=== PATIENT | male | born 1955 | race Caucasian/White ===

== ENCOUNTER 2021-06-30 02:01 | Day surgery (SDC) | payer OTHER, SELFPAY ==
[2021-06-15 14:51] VITALS: BMI 33.7
[2021-06-30 08:15] VITALS: BP 127/74; PULSE 61; RESP 16; TEMP 36.3; O2SAT 99
[2021-06-30] MEDS: LACTATED RINGERS 1,000 ML 150 ML IV CONT (08:30)
--- NOTE | 2021-06-30 09:03 | PM.HPGS ---
History of Present Illness History of Present Illness Consent: Risks, benefits, and alternatives have been discussed and questions answered. Patient agrees to proceed with procedure. Chief complaint: neoplasm screening Z12.11 Narrative: Enrique Gaitan is a 65 year old male here for screening colonoscopy, last one 12 years ago. Review of Systems Constitutional: Constitutional: Denies headache(s) and Denies weakness Eyes: Eyes: Denies blurry vision ENT: Reports Normal hearing present, Denies headache(s) and Denies neck pain Cardiovascular: Cardiovascular: Denies chest pain and Denies dyspnea Respiratory: Respiratory: Denies dyspnea Gastrointestinal: Gastrointestinal: Reports no additional gastrointestinal complaints Genitourinary: Genitourinary: Denies dysuria Musculoskeletal: Musculoskeletal: Denies neck pain Integumentary/Breasts: Skin/Breast: Denies dry skin Neurologic: Reports Normal hearing present, Denies headache(s) and Denies weakness Psychiatric: Psychiatric: Denies anxiety Endocrine: Endocrine: Denies change in body appearance Hematologic/Lymphatic: Hematologic/Lymphatic: Denies easy bleeding Allergic/Immunologic: Allergic/Immunologic: Denies urticaria PMFSH Past Medical History Medical History (Updated 06/30/21 @ 09:03 by Berry Ngo MD) Colon cancer screening Hyperlipidemia Hypertension NABOR (obstructive sleep apnea) Social History Social History Smoking status: Former smoker Tobacco type: cigarettes Alcohol intake: current Alcohol use details: socially Substance use: never Substance use type: does not use Living arrangements: with family Spiritual care concerns: No Meds Home Medications and Allergies Home Medications Medication Instructions Recorded Confirmed Type fluoxetine 20 mg PO DAILY 06/15/21 06/30/21 History gabapentin 300 mg PO DAILY 06/15/21 06/30/21 History hydrochlorothiazide 50 mg PO DAILY 06/15/21 06/30/21 History losartan 100 mg PO DAILY 06/15/21 06/30/21 History pravastatin 40 mg PO DAILY 06/15/21 06/30/21 History Allergies Allergy/AdvReac Type Severity Reaction Status Date / Time No Known Allergies Allergy Verified 06/30/21 08:14 Vital Signs Vital Signs - 24 hr 06/30/21 08:15 Temperature 97.3 F L Pulse Rate 61 Respiratory Rate 16 Blood Pressure 127/74 Pulse Oximetry 99 Exam Const: General: comfortable and no acute distress HENMT: General nose exam: Normal nares present Eyes: General: appearance normal, both eyes and all related structures Neck: Neck: no JVD Resp: Auscultation: clear to auscultation bilaterally Cardio: Rate: regular rate Rhythm: regular rhythm GI: Inspection: non-distended GI Palp: Yes Soft to palpation Skin: General skin exam: normal color Neuro: General: gait normal Speech: normal speech Extrem: General: normal to inspection Psych: Mental Status: mental status grossly normal Assessment and Plan Assessment and plan (1) Colon cancer screening: Code(s): Z12.11 - Encounter for screening for malignant neoplasm of colon Status: Acute Assessment and Plan: colonoscopy
--- NOTE | 2021-06-30 09:05 | P.PNAN_ITS ---
Anes - Initial Pre Proc Eval Procedure: Operation Date: 06/30/21 09:00 Proposed Procedures p Screening Colonoscopy - Berry Ngo MD Date/Time: 06/30/21 09:05 Surgeon: Berry Ngo MD Pre Op Diagnosis: neoplasm screening Z12.11 Patient Data Age: 65 Gender: M Height: 1.91 m Weight: 122.6 kg Last Vital Signs Temp 97.3 F L 06/30/21 08:15 Pulse 61 06/30/21 08:15 Resp 16 06/30/21 08:15 BP 127/74 06/30/21 08:15 Pulse Ox 99 06/30/21 08:15 Allergies Allergy/AdvReac Type Severity Reaction Status Date / Time No Known Allergies Allergy Verified 06/30/21 08:14 Home Medications Medication Instructions Recorded Confirmed Type fluoxetine 20 mg PO DAILY 06/15/21 06/30/21 History gabapentin 300 mg PO DAILY 06/15/21 06/30/21 History hydrochlorothiazide 50 mg PO DAILY 06/15/21 06/30/21 History losartan 100 mg PO DAILY 06/15/21 06/30/21 History pravastatin 40 mg PO DAILY 06/15/21 06/30/21 History Patient hx anesthesia problems: none Family hx anesthesia problems: none [facility] Past Medical History Medical History (Updated 06/30/21 @ 09:03 by Berry Ngo MD) Colon cancer screening Hyperlipidemia Hypertension NABOR (obstructive sleep apnea) Social History Social History Smoking status: Former smoker Tobacco type: cigarettes Alcohol intake: current Alcohol use details: socially Substance use: never Substance use type: does not use Living arrangements: with family Spiritual care concerns: No Anes - Eval Final PreProcedure Day of Procedure 06/30/21 09:05 Patient weight: obese Heart: regular rate and rhythm Lungs: clear to auscultation Airway: Mallampati scale class II Neurological: alert and oriented Last oral intake: >/= 8 hours ASA classification: III Emergent: no Anesthetic plan: proceed Anesthesia type and monitoring: general GIVS and standard monitoring Informed Consent: The patient's anesthetic plan and its attendant risks and benefits were discussed with the patient/family/POA. Questions were solicited and answers provided to the satisfaction of the patient/family/POA.
[2021-06-30 09:35] VITALS: BP 115/68; PULSE 52; RESP 22; O2SAT 96
[2021-06-30 09:45] VITALS: BP 124/84; PULSE 58; RESP 24; O2SAT 96
[2021-06-30 09:55] VITALS: BP 131/88; PULSE 49; RESP 22; O2SAT 100
== END 2021-06-30 10:07 | disposition home or self-care (01) ==
PROVIDERS: PCP Internal Medicine; Visit Provider Internal Medicine Gastroenterology
PROC: 0DJD8ZZ Inspection of Lower Intestinal Tract, Via Natural or Artificial Opening Endoscopic (ICD-10-PCS; CPT 45378; principal; 2021-06-30 09:00)
DX: Z12.11 Encounter for screening for malignant neoplasm of colon (principal); K57.30 Diverticulosis of large intestine without perforation or abscess without bleeding; D12.5 Benign neoplasm of sigmoid colon; K64.8 Other hemorrhoids; I10 Essential (primary) hypertension; E78.5 Hyperlipidemia, unspecified; G47.33 Obstructive sleep apnea (adult) (pediatric); E66.9 Obesity, unspecified; Z68.33 Body mass index [BMI] 33.0-33.9, adult
CPT/HCPCS: 45385; 88305; J2704; J7120

== ENCOUNTER 2022-06-26 13:38 | Outpatient (CLI) | payer MEDICARE, OTHER, SELFPAY ==
--- NOTE | 2022-06-26 14:28 | ECG_ITS ---
Measurements Intervals [place] Rate: 62 P: -21 OK: 183 QRS: -37 QRSD: 108 T: 18 QT: 419 QTc: 428 Interpretive Statements SINUS RHYTHM LEFT AXIS DEVIATION INCOMPLETE RIGHT BUNDLE BRANCH BLOCK BORDERLINE ECG NO PREVIOUS ECG AVAILABLE FOR COMPARISON Electronically Signed On 06-26-2022 14:36:40 CDT by Jayden Varghese D.O.
[2022-06-26 14:49] LABS: Basophils Percent Auto 0.8 % (0.2-1.2); Eosinophils Absolute Auto 0.2 K/mm3 (0-0.3); Eosinophils Percent Auto 3.2 % (0-4.4); Hematocrit 38.5 % (42.0-52.0); Hemoglobin 13.7 g/dL (14.0-18.0); Immature Granulocyte Absolute 0.01 K/mm3 (0.00-0.031); Immature Granulocyte Percent A 0.2 % (0-0.5); Lymphocytes Absolute Auto 1.62 K/mm3 (0.9-3.2); Lymphocytes Percent Auto 30.9 % (18.3-44.2); Mean Corpuscular HGB Conc 35.6 g/dl (32-36); Mean Corpuscular Hemoglobin 30.9 pg (26-34); Mean Corpuscular Volume 86.9 fl (80-100); Mean Platelet Volume 9.1 fl (7.4-10.4); Monocytes Absolute Auto 0.5 K/mm3 (0.1-0.6); Monocytes Percent Auto 8.6 % (2.6-8.5); Neutrophils Percent Auto 56.3 % (45.5-73.1); Platelet Count Result 161 k/mm3 (150-375); Red Blood Count 4.43 M/mm3 (4.6-6.20); Red Cell Distribution Width 13.1 % (11.5-14.5); White Blood Count 5.2 K/mm3 (4.5-10.0)
[2022-06-26 14:57] LABS: INR 1.1; Prothrombin Time 13.3 Seconds (11.1-14.7)
[2022-06-26 14:58] LABS: Partial Thromboplastin Time 27.4 SECONDS (22.3-36.8)
[2022-06-26 15:01] LABS: Alanine Aminotransferase 37 U/L (6-50); Albumin Level 4.6 g/dL (3.5-5.1); Alkaline Phosphatase 113 U/L (38-126); Anion Gap 11 mmol/L (8-16); Aspartate Amino Transferase 28 U/L (17-59); Bilirubin,Total 0.8 mg/dL (0.2-1.3); Blood Urea Nitrogen 10 mg/dL (9-20); Calcium 9.2 mg/dL (8.4-10.2); Carbon Dioxide 29 mmol/L (22-30); Chloride 101 mmol/L (98-107); Estimated Glomerular Filt Rate > 60; Glucose 98 mg/dL (65-110); Potassium 3.5 mmol/L (3.4-5.0); Sodium 141 mmol/L (137-145)
== END 2022-06-26 13:39 | disposition home or self-care (01) ==
PROVIDERS: PCP Internal Medicine; Visit Provider Urology
DX: C61 Malignant neoplasm of prostate (principal); Z01.818 Encounter for other preprocedural examination; I45.10 Unspecified right bundle-branch block
CPT/HCPCS: 36415; 80053; 85025; 85610; 85730; 86850; 86900; 86901; 87086; 93005

== ENCOUNTER 2022-07-03 00:37 | Day surgery (SDC) | payer MEDICARE, OTHER, SELFPAY ==
--- NOTE | 2022-06-26 13:39 | PC.NURSE ---
PRE-OP INSTRUCTIONS, PLEASE READ CAREFULLY Report to the Outpatient Waiting Room, entrance under the green pavilion located off [facility], at time _0600_ on date _07/03/22_. OR Time: _0730_. PACK A SMALL OVERNIGHT BAG AND LEAVE IN THE CAR Time changes happen often and if your time is changed the preop area will call you the afternoon before. - You and your visitor will be asked to self-screen and do not enter if you have any COVID symptoms. - A mask is required within the hospital. - Only one visitor and NO children visitors are allowed at this time. - The patient visitor is requested to leave or wait in car when not with patient due to restrictions. - VISITING HOURS 10AM-8PM, PARK IN FRONT PARKING LOT AND USE HOSPITAL ENTRANCE 1 Patients may have clear liquids (water, carbonated beverages, clear teas, apple juice) until 3 hours prior to surgery (0430 AM) with a maximum of 20 ounces. - No food from midnight until time of surgery Take the following medications with a SIP of water the morning of surgery: _GABAPENTIN_ Medications to discontinue per DR. DEE _ASPIRIN, IBUPROFEN, JUICE PLUS OSMEL 7 DAYS PRIOR TO SURGERY__, Date to take last dose 06/25/22_ Please no deodorant, or body powder the day of surgery. No jewelry (including any body piercings) or valuables the day of surgery, leave them at home. Please take a shower or bath the night before, or the morning of, surgery with an antibacterial soap. Wear comfortable, loose fitting clothing. - Jewelry must be removed prior to entering the operating room. Rings and piercings that are not removed may be cut off. - The hospital will not accept responsibility for valuables. - Please leave all valuables, including medications, at home the day of surgery. If you are going home after surgery, a licensed trash truck driver must drive you home. - NO public transportation without another adult. - We recommend that an adult stay with you for 24 hours following discharge. - We also recommend that you do not drive, make important decision, drink alcoholic beverages, or take any drugs that were not prescribed by your health care provider for at least 24 hours after your discharge time. Follow any additional instructions given to you from your surgeon. If you or anyone in your household have experienced Covid symptoms in the past week, please notify your surgeon or the nurse liaison at the phone number below for possible testing. Instructions given to PT and asked if any additional questions and then verbalized understanding. Patient advised to call surgeon office or pre surgery nurse liaison [phone] if any additional questions.
[2022-06-26 14:05] VITALS: BP 160/96; PULSE 64; RESP 20; TEMP 36.9; O2SAT 97; BMI 34.4
--- NOTE | 2022-07-02 11:50 | WPDANESEPPF ---
Anes - Initial Pre Proc Eval Procedure: Operation Date: 07/03/22 07:30 Proposed Procedures p Robotic Assisted Nerve Sparing Prostatectomy with Possible Pelvic Lymph Node Dissection - Jaron Abbasi MD Date/Time: 07/02/22 11:50 Surgeon: Jaron Abbasi MD Pre Op Diagnosis: prostate cancer Patient Data Age: 66 Gender: M Height: 1.91 m Weight: 125 kg Last Vital Signs Temp 36.9 C 06/26/22 14:05 Pulse 64 06/26/22 14:05 Resp 20 06/26/22 14:05 BP 160/96 H 06/26/22 14:05 Pulse Ox 97 06/26/22 14:05 O2 Del Method Room Air 06/26/22 14:05 Allergies Allergy/AdvReac Type Severity Reaction Status Date / Time No Known Allergies Allergy Verified 07/03/22 06:06 Home Medications Medication Instructions Recorded Confirmed Type fluoxetine 20 mg capsule 20 mg PO DAILY 06/15/21 07/03/22 History gabapentin 300 mg capsule 300 mg PO DAILY 06/15/21 07/03/22 History hydrochlorothiazide 50 mg tablet 50 mg PO DAILY 06/15/21 07/03/22 History losartan 100 mg tablet 100 mg PO DAILY 06/15/21 07/03/22 History pravastatin 40 mg tablet 40 mg PO DAILY 06/15/21 07/03/22 History ascorbic acid (vitamin C) 500 mg 500 mg PO HS 06/26/22 07/03/22 History capsule,extended release (Vitamin C) aspirin 81 mg tablet,delayed 81 mg PO DAILY 06/26/22 06/26/22 History release cholecalciferol (vitamin D3) 25 25 mcg PO HS 06/26/22 07/03/22 History mcg (1,000 unit) tablet gabapentin 300 mg capsule 600 mg HS 06/26/22 07/03/22 History ibuprofen 800 mg tablet 800 mg PO BID PRN Pain 06/26/22 06/26/22 History nutritional supplement-fiber oral 1 ea DAILY 06/26/22 06/26/22 History liquid zinc 50 mg capsule 50 mg PO DAILY 06/26/22 07/03/22 History Patient hx anesthesia problems: none Family hx anesthesia problems: none Results Review: All pre-operative results and documents have been reviewed as part of the pre-operative evaluation. PMFSH Past Medical History Medical History (Updated 07/02/22 @ 12:28 by Efrain Vee MD) Back pain Depression Hyperlipidemia Hypertension Obesity NABOR (obstructive sleep apnea) Prostate CA Social History Social History Smoking status: Former smoker Tobacco type: cigarettes Second hand tobacco smoke exposure: No Additional smoking assessment comments: STATES 1PK/WEEK/5YRS/QUIT 1976. VAPED 2YRS QUIT 2016 Alcohol intake: current Drinks per week: 2 Alcohol use details: socially Substance use: never Substance use type: does not use Living arrangements: with family Spiritual care concerns: No Anes - Eval Final PreProcedure Day of Procedure 07/02/22 11:50 Patient weight: obese Heart: regular rate and rhythm Lungs: clear to auscultation Airway: Mallampati scale class II Neurological: alert and oriented Last oral intake: >/= 8 hours ASA classification: III Emergent: no Anesthetic plan: proceed Anesthesia type and monitoring: general ETT and standard monitoring Results Review: All pre-operative results and documents have been reviewed as part of the pre-operative evaluation. Informed Consent: The patient's anesthetic plan and its attendant risks and benefits were discussed with the patient/family/POA. Questions were solicited and answers provided to the satisfaction of the patient/family/POA.
[2022-07-03] VITALS (17 sets, daily range): BP systolic 100–127; BP diastolic 51–76; PULSE 63–79; RESP 11–20; TEMP 36.1–37; O2SAT 95–100
[2022-07-03] MEDS: LACTATED RINGERS 1,000 ML 30 ML IV CONT ×2 (06:32→12:22)
--- NOTE | 2022-07-03 07:20 | WPDHPUPDATE1 ---
History and Physical Update Update Date/Time: 07/03/22 07:20 History and Physical has been reviewed, including an updated exam of the patient. There are NO changes in the patient's condition. Risks, benefits, and alternatives have been discussed and questions answered. Patient agrees to proceed with procedure. Proceed with robotic assist nerve sparing prostatectomy with possible plnd
[2022-07-03] MEDS: ceFAZolin 3 GM/D5W 100 ML 100 ML IVPB (07:29)
--- NOTE | 2022-07-03 12:01 | P.OP_ITS ---
Procedure Note - Detailed Date of Procedure 07/03/22 Pre-op Diagnosis prostate cancer Post-op Diagnosis Same Procedure Performed Robotic assisted nerve-sparing prostatectomy with right pelvic lymph node dissection Surgeon Jaron Abbasi MD Anesthesia General Description of Procedure Patient is taken to the operative suite and correctly identified. Once anesthesia was obtained was placed in low-lying dorsal lithotomy position and prepped draped usual sterile fashion. All pressure points were padded. Supraumbilical incision was made carried down to the rectus fascia. Veress needle was inserted the abdomen was insufflated to 15 mmHg pressure. I should state that a 18 Prydeinig Guerrero was placed prior to Veress needle placement. Patient had adhesions of the sigmoid colon which were taken down. Posterior approach was then performed. Seminal vesicles were dissected out. The vas were transected. Plane between the prostate and rectum was developed. Patient's tissue was somewhat watery in nature. Bladder was taken down standard fashion. Space of Retzius was developed bilaterally. Puboprostatic were incised. Dorsal venous complex was isolated using a 0 Vicryl suture and secured to the pubic bone. Anterior bladder neck was then opened. Bladder neck sparing procedure was performed. Posterior sheath was opened and the seminal vesicles were visualized. Pedicles were clipped. Bilateral nerve-sparing was performed. The right side was taken slightly more laterally due to the positivity of his cores. Dorsal venous complex was transected. Urethra is was also transected with a nice stump. A Keyon stitch was then placed using 0 Vicryl. V lock suture was used to anastomose the bladder neck to the urethral stump. There was good approximation of mucosa. It was water tight. Sixteen Prydeinig Guerrero was placed with 10 cc in the balloon. The bladder was filled to 200 cc with normal saline. There was no evidence of extravasation. A right pelvic lymph node dissection was then performed with the boundaries being external iliac vein, Zohaib's ligament, bifurcation of the vessels, and obturator nerve. Specimens were placed in an Endo-Catch bag. Specimen was then brought out through the midline incision. Rectus fascia was closed using 0 Vicryl running fashion. Subcuticula r stitches were placed. All lap count needle count sponge counts were correct at termination procedure. Patient is taken recovery stable condition. Estimated Blood Loss 200 Drains Yes Packing No Pathology Yes Complications No immediate complications Condition Stable Disposition PACU
[2022-07-03] MEDS: fentaNYL CITRATE INJ (*CRX) 100 MCG/2 ML VIAL 25 MCG IV PUSH ×4 (12:57→13:31)
--- NOTE | 2022-07-03 14:31 | ADMGEN ---
This patient, Enrique Gaitan, was admitted to 3 [facility] Surg Room 316-01. Patient/family oriented to hospital policies and general routines including ID bracelet, bed and alarms, visiting hours, pain management, procedures, bathroom and other care routines, personal items, smoking policy, room service/diet, and visiting hours. Information on how to activate the Rapid Response Team has been discussed. Patient/Family are encouraged to report perceived risks to care and to ask questions if they do not understand what they are told or what they should do.
[2022-07-03] MEDS: LACTATED RINGERS 1,000 ML 125 ML IV CONT ×2 (14:48→21:59)
[2022-07-03] MEDS: DOCUSATE SODIUM 100 MG CAPSULE PO (16:31)
[2022-07-03] MEDS: MORPHINE SULFATE (*CRX) 2 MG/ML INJ IV PUSH (16:31)
[2022-07-03] MEDS: GABAPENTIN 300 MG CAPSULE 600 MG BY MOUTH (20:52)
[2022-07-03] MEDS: PRAVASTATIN SODIUM 20 MG TABLET 40 MG PO (20:52)
[2022-07-03] MEDS: HYDROcodone/acetaminophen (*CRX) 5-325 MG TABLET 2 TAB PO (21:22)
[2022-07-03] MEDS: WATER FOR IRRIGATION, STERILE 1,000 ML BOTTLE 1000 ML (21:59)
[2022-07-04 02:36] VITALS: PULSE 71; RESP 19; O2SAT 96
[2022-07-04 03:59] VITALS: BP 117/72; PULSE 55; RESP 18; TEMP 36; O2SAT 98
[2022-07-04] MEDS: HYDROcodone/acetaminophen (*CRX) 5-325 MG TABLET 2 TAB PO (04:40)
[2022-07-04] MEDS: LACTATED RINGERS 1,000 ML 125 ML IV CONT (06:46)
[2022-07-04 06:49] LABS: Hematocrit 33.9 % (42.0-52.0); Hemoglobin 11.9 g/dL (14.0-18.0)
[2022-07-04 06:57] LABS: Anion Gap 11 mmol/L (8-16); Blood Urea Nitrogen 9 mg/dL (9-20); Calcium 8.1 mg/dL (8.4-10.2); Carbon Dioxide 29 mmol/L (22-30); Chloride 97 mmol/L (98-107); Estimated CRCL calculation 113 ml/min; Estimated Glomerular Filt Rate > 60; Glucose 111 mg/dL (65-110); Potassium 3.4 mmol/L (3.4-5.0); Sodium 137 mmol/L (137-145)
--- NOTE | 2022-07-04 07:40 | WPDANESPN ---
Anes - Prog Note Post-Op Date/Time: 07/04/22 07:40 Cardiovascular status: normal Respiratory status: normal Airway patency: baseline Mental status: baseline Post-Op hydration status: normal Vital Signs: Last Vital Signs Temp 96.8 F L 07/04/22 03:59 Pulse 55 L 07/04/22 03:59 Resp 18 07/04/22 03:59 BP 117/72 07/04/22 03:59 Pulse Ox 98 07/04/22 03:59 O2 Del Method Autopap 07/04/22 02:36 O2 Flow Rate 1 07/03/22 14:52 Pain Score (VAS): 1 I/O: Intake & Output 07/03/22 07/03/22 07/04/22 15:59 23:59 07:59 Intake Total 750 1550 1050 Output Total 441 553 4052 Balance 600 875 -925 Laboratory Tests 07/04/22 06:16 07/04/22 06:16 07/04/22 07/04/22 06:16 06:16 Hgb 11.9 L Hct 33.9 L Sodium 137 Potassium 3.4 Chloride 97 L Carbon Dioxide 29 Anion Gap 11 BUN 9 Creatinine 0.80 Estim Creat Clear Calc 113 Estimated GFR > 60 Glucose 111 H Calcium 8.1 L Patient Feedback: Patient satisfied with anesthetic care. Other Findings: c/o slight tingling in fingers. Informed should go away but to follow up with dr if doesn't
[2022-07-04 07:59] VITALS: BP 114/67; PULSE 59; RESP 14; TEMP 36.6; O2SAT 97
[2022-07-04] MEDS: HYOSCYAMINE SULFATE 0.125 MG TABLET SUBLINGUAL (08:03)
[2022-07-04] MEDS: DOCUSATE SODIUM 100 MG CAPSULE PO (08:03)
[2022-07-04] MEDS: levoFLOXacin 500 MG TABLET PO (08:04)
[2022-07-04] MEDS: hydroCHLOROthiazide 25 MG TABLET 50 MG PO (08:04)
[2022-07-04] MEDS: GABAPENTIN 300 MG CAPSULE PO (08:04)
[2022-07-04] MEDS: LOSARTAN POTASSIUM 100 MG TABLET PO (08:04)
[2022-07-04] MEDS: FLUoxetine HCL 20 MG CAPSULE PO (08:04)
--- NOTE | 2022-07-04 08:12 | WPDUROPN2 ---
Progress Note: A&P Assessment and Plan (1) Prostate CA: Code(s): C61 - Malignant neoplasm of prostate Status: Acute Assessment and Plan: Doing well overall. Ambulate with assistance today. Monitor ROBERT output. If minimal will remove later today and possibly discharge home later this evening. Follow up in 1 week for catheter cystogram. Subjective Subjective Date/Time Seen: 07/04/22 08:12 Post Op day: 1 (Postop day 1. From robotic assisted nerve-sparing prostatectomy with right pelvic lymph node dissection) Principal diagnosis: Adenocarcinoma prostate Interval history: Overall doing well. Does have some lower abdominal discomfort which is expected and may be secondary to some bladder spasms. Review of Systems Review of Systems: All systems reviewed & are unremarkable except as noted in HPI and below Exam Const: General: cooperative, comfortable and no acute distress Eyes: General: appearance normal, both eyes and all related structures Resp: Effort & Inspection: normal respiratory effort Cardio: Rate: regular rate GI: Inspection: normal to inspection GI Palp: Yes Soft to palpation Urinary Catheter: Urinary Catheter: patent and draining and urine clear Objective Data Vital Signs Vital Signs: Vital Signs - 24 hr 07/03/22 12:21 07/03/22 12:36 07/03/22 12:50 Temperature 37.0 C Pulse Rate 78 75 69 Respiratory Rate 16 11 L 17 Blood Pressure 117/63 100/51 L 105/53 L Pulse Oximetry 98 97 98 Oxygen Delivery Simple Face Mask Simple Face Mask Simple Face Mask Oxygen Flow Rate 10 10 8 07/03/22 13:05 07/03/22 13:20 07/03/22 13:35 Temperature Pulse Rate 69 72 67 Respiratory Rate 12 15 14 Blood Pressure 115/65 117/71 104/62 Pulse Oximetry 100 99 97 Oxygen Delivery Simple Face Mask Simple Face Mask Room Air Oxygen Flow Rate 8 10 07/03/22 13:50 07/03/22 14:05 07/03/22 14:13 Temperature Pulse Rate 63 67 68 Respiratory Rate 16 15 Blood Pressure 105/53 L 104/61 117/63 Pulse Oximetry 96 98 98 Oxygen Delivery Nasal Cannula Nasal Cannula Nasal Cannula Oxygen Flow Rate 2 2 2 07/03/22 14:38 07/03/22 14:52 07/03/22 15:59 Temperature 36.1 C L Pulse Rate 66 Respiratory Rate 20 Blood Pressure 107/68 Pulse Oximetry 97 97 98 Oxygen Delivery Nasal Cannula Nasal Cannula Oxygen Flow Rate 2 1 07/03/22 19:59 07/03/22 22:00 07/03/22 23:02 Temperature 36.6 C 36.6 C Pulse Rate 77 77 79 Respiratory Rate 18 18 15 Blood Pressure 113/63 113/63 Pulse Oximetry 97 97 95 Oxygen Delivery Autopap Oxygen Flow Rate 07/03/22 20:00 07/03/22 23:59 07/04/22 02:36 Temperature 36.1 C L Pulse Rate 65 71 Respiratory Rate 16 19 Blood Pressure 127/76 Pulse Oximetry 97 96 Oxygen Delivery Room Air Autopap Oxygen Flow Rate 07/04/22 03:59 Temperature 36.0 C L Pulse Rate 55 L Respiratory Rate 18 Blood Pressure 117/72 Pulse Oximetry 98 Oxygen Delivery Oxygen Flow Rate Intake/Output Intake/Output: Intake & Output 07/01/22 07/02/22 07/03/22 07/04/22 23:59 23:59 23:59 23:59 Intake Total 2400 1050 Output Total 825 1975 Balance 1575 -925 Meds/Results Medications: Active Medications Generic Name Dose Route Start Last Admin Trade Name Freq PRN Reason Stop Dose Admin Hydrocodone Bitart/Acetaminophen 1 tab 07/03/22 14:14 Hydrocodone/Acetaminophen (*Crx) 5-325 Mg Tablet PO Q6H PRN Pain Rated 1-3 Hydrocodone Bitart/Acetaminophen 2 tab 07/03/22 14:14 07/04/22 04:40 Hydrocodone/Acetaminophen (*Crx) 5-325 Mg Tablet PO 2 tab Q6H PRN Administration Pain Rated 4-6 Docusate Sodium 100 mg 07/03/22 17:00 07/04/22 08:03 Docusate Sodium 100 Mg Capsule PO 100 mg BID AMARA Administration Fluoxetine HCl 20 mg 07/04/22 09:00 07/04/22 08:04 Fluoxetine Hcl 20 Mg Capsule PO 20 mg MoWeFr@0900 AMARA Administration Gabapentin 300 mg 07/04/22 09:00 07/04/22 08:04 Gabapentin 300 Mg Capsule PO 300 m
[2022-07-04 11:54] VITALS: BP 114/66; PULSE 71; RESP 18; TEMP 36.8; O2SAT 97
[2022-07-04] MEDS: HYDROcodone/acetaminophen (*CRX) 5-325 MG TABLET 1 TAB PO (12:12)
== END 2022-07-04 13:30 | disposition home or self-care (01) ==
LOC: ANHSURGERY 05:55 → ANH3MEDSUR 14:17
PROVIDERS: PCP Internal Medicine; Visit Provider Urology
PROC: 0VT04ZZ Resection of Prostate, Percutaneous Endoscopic Approach (ICD-10-PCS; CPT 55867; principal; 2022-07-03 07:30)
DX: C61 Malignant neoplasm of prostate (principal); R20.2 Paresthesia of skin; I10 Essential (primary) hypertension; E78.5 Hyperlipidemia, unspecified; G47.33 Obstructive sleep apnea (adult) (pediatric); F32.A Depression, unspecified; Z87.891 Personal history of nicotine dependence; E66.9 Obesity, unspecified; Z68.33 Body mass index [BMI] 33.0-33.9, adult
CPT/HCPCS: 55866; 38571; S2900; 36415; 80048; 85014; 85018; 88309; A9270; J0131; J0690; J1100; J1170; J2250; J2270; J2405; J2704; J2710; J3010; J7030; J7120

== ENCOUNTER 2022-07-11 09:35 | Outpatient (CLI) | payer MEDICARE, OTHER, SELFPAY ==
--- NOTE | ~2022-07-11 | XR_ITS ---
EXAMINATION: XR cystogram DATE: 07/11/2022 10:16 INDICATION: Prostate cancer TECHNIQUE: Water-soluble contrast was gravity-infused through the patient's Guerrero catheter. Multiple fluoroscopic images were obtained. Fluoroscopy exposure time was 0.9 minutes. The DAP for this proced ure was 27.619 Gycm2. COMPARISON: None. FINDINGS: There is a Guerrero catheter in the urinary bladder. The bladder contour is normal. There is n o evidence of contrast extravasation. IMPRESSION: 1. No evidence of contrast extravasation. Reviewed, dictated and finalized at location A.
== END 2022-07-11 09:36 | disposition home or self-care (01) ==
PROVIDERS: PCP Internal Medicine; Visit Provider Urology
DX: C61 Malignant neoplasm of prostate (principal)
CPT/HCPCS: 51600; 74430; Q9967

== ENCOUNTER 2022-10-22 08:12 | Outpatient (CLI) | payer MEDICARE, OTHER, SELFPAY ==
--- NOTE | ~2022-10-22 | XR_ITS ---
EXAMINATION: XR knee LT min 4V, XR knee RT min 4V DATE: 10/22/2022 08:44 INDICATION: Bilateral knee pain TECHNIQUE: 1. Weight bearing anteroposterior and [place], sunrise, and flexed lateral views of the right knee were obtained. 2. Weight bearing anteroposterior and [place], sunrise, and flexed lateral views of the left knee w ere obtained. COMPARISON: None. FINDINGS: Left knee: No fracture. No joint effusion/layering lipohemarthrosis. Mild genu varus resulting from severe nonun iform joint space narrowing and small marginal osteophytes at the medial compartment of the right kne e. Additional small marginal osteophytes without significant joint space narrowing at the lateral and patellofemoral compartments. There is irregular cortical contour along the patellar apical ridge sug gesting potential underlying high-grade chondromalacia. Soft tissues are unremarkable. Right knee: No fracture. No joint effusion/layering lipohemarthrosis. Alignment is normal. Less severe medial com partment predominant tricompartmental osteoarthritis at the right knee with mild to moderate joint sp darien narrowing at the medial compartment of the right knee and tiny marginal osteophytes in all 3 comp artments. Soft tissues are unremarkable. IMPRESSION: 1. 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 Reviewed, dictated and finalized at location A. 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
== END 2022-10-22 08:13 | disposition home or self-care (01) ==
PROVIDERS: PCP Internal Medicine; Visit Provider Orthopaedic Surgery
DX: M17.0 Bilateral primary osteoarthritis of knee (principal)
CPT/HCPCS: 73564

== ENCOUNTER 2022-11-15 06:41 | Outpatient (CLI) | payer MEDICARE, OTHER, SELFPAY ==
--- NOTE | ~2022-11-15 | CT_ITS ---
EXAMINATION: CT LE LT wo con DATE: 11/15/2022 07:14 INDICATION: Primary osteoarthritis of the left knee TECHNIQUE: High resolution computed tomography (CT) of the left lower extremity from the hip through the ankle was performed without intravenous contrast. Additional sagittal and coronal reconstructions were performed. Automated exposure control and iterative reconstruction technique were employed. The dose-length product was 1841.79 mGy-cm. COMPARISON: None FINDINGS: No fracture. Negligible left genu varum with severe joint space narrowing in the medial compartment o f the left knee. There is eburnation and a few tiny subarticular cystlike changes along the anterior to central weightbearing medial femoral condyle and anterior half of the medial tibial plateau. Mild joint space narrowing in the patellofemoral compartment left knee with additional subarticular cystic changes at both the medial and lateral patellar facets. There are small to moderate size marginal os teophytes in all 3 compartments of the left knee. Small left knee joint effusion. Mild osteoarthritis at the left hip and ankle joints. Small sclerotic bone island at the left ischial. There is heteroto pic ossification at the tibial insertion of the posterior inferior tibiofibular ligament which could represent sequela of chronic sprain. Mild subcutaneous edema in a couple tiny dystrophic ossification s in the soft tissues anterior to the patellar tendon. Small to moderate-sized fat-containing left in guinal hernia. No pathologically enlarged left pelvic or inguinal lymphadenopathy. IMPRESSION: 1. Severe medial compartment predominant tricompartmental osteoarthritis at the left knee with small left knee joint effusion. Reviewed, dictated and finalized at location A. KSHAFT BALANCER
[2022-11-15 07:57] LABS: Hematocrit 41.4 % (42.0-52.0); Hemoglobin 14.6 g/dL (14.0-18.0)
[2022-11-15 08:06] LABS: Urine Cotinine NEGATIVE
[2022-11-15 08:09] LABS: Albumin Level 4.7 g/dL (3.5-5.1); Estimated Glomerular Filt Rate > 60; Glucose 97 mg/dL (65-110)
[2022-11-15 08:11] LABS: Hemoglobin A1C 5.1 % (<5.7)
--- NOTE | 2022-11-15 08:19 | ECG_ITS ---
Measurements Intervals [place] Rate: 60 P: SD: 0 QRS: -25 QRSD: 114 T: 56 QT: 428 QTc: 429 Interpretive Statements NORMAL SINUS RHYTHM BORDERLINE LEFT AXIS DEVIATION [QRS AXIS < -20] LOW QRS VOLTAGE IN PRECORDIAL LEADS [QRS DEFLECTION < 1.0 mV IN CHEST LEADS] INCOMPLETE RIGHT BUNDLE BRANCH BLOCK [90+ ms QRS DURATION, TERMINAL R IN V1/V2, 40+ ms S IN I/aVL/V4/V5/V6] ABNORMAL ECG Electronically Signed On 11-15-2022 10:09:51 THREAD INSPECTOR by Allen Burleson M.D.
== END 2022-11-15 06:42 | disposition home or self-care (01) ==
LOC: ANHIMG 06:50
PROVIDERS: PCP Internal Medicine; Visit Provider Orthopaedic Surgery
DX: M17.12 Unilateral primary osteoarthritis, left knee (principal); I10 Essential (primary) hypertension; E78.5 Hyperlipidemia, unspecified; Z79.899 Other long term (current) drug therapy; M54.9 Dorsalgia, unspecified; M25.462 Effusion, left knee; I45.10 Unspecified right bundle-branch block
CPT/HCPCS: 73700; 80307; 82040; 82565; 82947; 83036; 85014; 85018; 93005

== ENCOUNTER 2023-01-09 11:30 | Outpatient (CLI) | payer MEDICARE, OTHER, SELFPAY ==
[2023-01-09 12:46] LABS: Basophils Absolute Auto 0.1 K/mm3 (0.0-0.1); Basophils Percent Auto 0.8 % (0.2-1.2); Eosinophils Absolute Auto 0.1 K/mm3 (0-0.3); Eosinophils Percent Auto 2.4 % (0-4.4); Hematocrit 40.3 % (42.0-52.0); Hemoglobin 14.3 g/dL (14.0-18.0); Immature Granulocyte Absolute 0.02 K/mm3 (0.00-0.031); Immature Granulocyte Percent A 0.3 % (0-0.5); Lymphocytes Absolute Auto 1.43 K/mm3 (0.9-3.2); Lymphocytes Percent Auto 24.1 % (18.3-44.2); Mean Corpuscular HGB Conc 35.5 g/dl (32-36); Mean Corpuscular Hemoglobin 31.2 pg (26-34); Mean Corpuscular Volume 87.8 fl (80-100); Monocytes Absolute Auto 0.5 K/mm3 (0.1-0.6); Monocytes Percent Auto 8.1 % (2.6-8.5); Neutrophils Absolute Auto 3.8 K/mm3 (1.3-6.7); Neutrophils Percent Auto 64.3 % (45.5-73.1); Platelet Count Result 168 k/mm3 (150-375); Red Blood Count 4.59 M/mm3 (4.6-6.20); Red Cell Distribution Width 13.2 % (11.5-14.5); White Blood Count 5.9 K/mm3 (4.5-10.0)
[2023-01-09 12:53] LABS: Albumin Level 4.7 g/dL (3.5-5.1)
[2023-01-09 12:54] LABS: Urine Cotinine NEGATIVE
[2023-01-09 12:57] LABS: Anion Gap 8 mmol/L (8-16); Blood Urea Nitrogen 18 mg/dL (9-20); Calcium 8.8 mg/dL (8.4-10.2); Carbon Dioxide 29 mmol/L (22-30); Chloride 102 mmol/L (98-107); Estimated Glomerular Filt Rate > 60; Glucose 115 mg/dL (65-110); Potassium 3.1 mmol/L (3.4-5.0); Sodium 139 mmol/L (137-145)
== END 2023-01-09 11:31 | disposition home or self-care (01) ==
LOC: ANHSURGERY 11:34
PROVIDERS: Anesthesiology; PCP Internal Medicine; Visit Provider Orthopaedic Surgery
DX: M17.12 Unilateral primary osteoarthritis, left knee (principal); Z79.899 Other long term (current) drug therapy; Z01.818 Encounter for other preprocedural examination
CPT/HCPCS: 80048; 80307; 82040; 85025; 87081

== ENCOUNTER 2023-02-04 01:16 | Day surgery (SDC) | payer MEDICARE, OTHER, SELFPAY ==
--- NOTE | 2023-01-09 11:23 | PC.NURSE ---
PRE-OP INSTRUCTIONS, PLEASE READ CAREFULLY Report to the Outpatient Waiting Room, entrance under the green pavilion located off [facility], at time _1000_ on date _02/04/23_. Planned Procedure Time: _1200_. PACK A SMALL OVERNIGHT BAG AND LEAVE IN THE CAR ALONG WITH YOUR WALKER Time changes happen often and if your time is changed the preop area will call you the afternoon before. - You and your visitor will be asked to self-screen and do not enter if you have any COVID symptoms. - Only one visitor is requested with a max of two and NO children visitors are allowed at this time. - The patient visitor may be requested to leave or wait in car when not with patient due to distancing restrictions. - A mask is optional within the hospital at this time. -VISITING HOURS 8AM-8PM Patients may have clear liquids (water, carbonated beverages, clear teas, apple juice) until 3 hours prior to surgery (0900 AM) with a maximum of 20 ounces. - No food from midnight until time of surgery Take the following medications with a SIP of water the morning of surgery: _FLUOXETINE, GABAPENTIN_ DO NOT STOP ANY OF YOUR OTHER PRESCRIPTION MEDICATIONS PRIOR TO SURGERY ?EXCEPT THE FOLLOWING Medications to discontinue per DR. RICHMOND - _ASPIRIN 7 DAYS PRIOR TO SURGERY, Date to take last dose 01/27/23_ Medications to discontinue per ANESTHESIA - _VITAMINS/SUPPLEMENTS 3 DAYS PRIOR TO SURGERY, Date to take last dose 01/31/23_ Please no deodorant, or body powder the day of surgery. No jewelry (including any body piercings) or valuables the day of surgery, leave them at home. Please take a shower or bath the night before, or the morning of, surgery with an antibacterial soap. Wear comfortable, loose fitting clothing. Children are encouraged to wear pajamas. - Jewelry must be removed prior to entering the operating room. Rings and piercings that are not removed may be cut off. - The hospital will not accept responsibility for valuables. - Please leave all valuables, including medications, at home the day of surgery. If you are going home after surgery, a licensed trash truck driver must drive you home. - NO public transportation without another adult if you receive anesthesia. - We recommend that an adult stay with you for 24 hours following discharge. - We also recommend that you do not drive, make important decision, drink alcoholic beverages, or take any drugs that were not prescribed by your health care provider for at least 24 hours after your discharge time. Follow any additional instructions given to you from your surgeon. TOTAL JOINT CLASS 01/16/23 @ [address] [place] [address] ENTRANCE #2 - LOWER LEVEL If you or anyone in your household have experienced Covid symptoms in the past week, please notify your surgeon or the nurse liaison at the phone number below for possible testing. Telephone instructions given to _PATIENT_and asked if any additional questions and then verbalized understanding. Patient advised to call surgeon office or pre surgery nurse liaison [phone] if any additional questions.
[2023-01-09 11:47] VITALS: BP 134/64; PULSE 76; RESP 20; TEMP 36.8; O2SAT 99; BMI 34.2
[2023-02-04] VITALS (12 sets, daily range): BP systolic 116–145; BP diastolic 63–85; PULSE 55–100; RESP 12–20; TEMP 36.2–37; O2SAT 97–100
--- NOTE | ~2023-02-04 | XR_ITS ---
EXAMINATION: [id number] DATE: 02/04/2023 14:52 INDICATION: Postoperative evaluation following left total knee arthroplasty. TECHNIQUE: Anteroposterior and lateral views of the left knee were obtained. COMPARISON: None. FINDINGS: Left total knee arthroplasty with patellar resurfacing appears well seated and in near anatomic align ment. No fractures identified. Expected postoperative subcutaneous and intra-articular gas. IMPRESSION: 1. Left total knee arthroplasty, negative for postoperative purposes. Reviewed, dictated and finalized at location A.
[2023-02-04] MEDS: ACETAMINOPHEN 500 MG TABLET 1000 MG PO ×3 (10:31→23:31)
[2023-02-04] MEDS: TRANEXAMIC ACID 1,000MG/ISO100 1,000 MG/100 ML BAG 200 MG IVPB (11:00)
--- NOTE | 2023-02-04 11:02 | WPDANESEPPF ---
Anes - Initial Pre Proc Eval Procedure: Operation Date: 02/04/23 12:00 Proposed Procedures p Left Custom Total Knee Arthroplasty - Sterling Sierra MD Date/Time: 02/04/23 11:02 Surgeon: Sterling Sierra MD Pre Op Diagnosis: primary oa left knee Patient Data Age: 67 Gender: M Height: 1.91 m Weight: 117.8 kg Last Vital Signs Temp 36.2 C L 02/04/23 09:56 Pulse 58 L 02/04/23 09:56 Resp 16 02/04/23 09:56 BP 137/76 02/04/23 09:56 Pulse Ox 100 02/04/23 09:56 O2 Del Method Room Air 02/04/23 09:56 Allergies Allergy/AdvReac Type Severity Reaction Status Date / Time No Known Allergies Allergy Verified 02/04/23 10:21 Home Medications Medication Instructions Recorded Confirmed Type fluoxetine 20 mg capsule 20 mg PO DAILY 06/15/21 02/04/23 History hydrochlorothiazide 50 mg tablet 50 mg PO DAILY 06/15/21 02/04/23 History losartan 100 mg tablet 100 mg PO DAILY 06/15/21 02/04/23 History pravastatin 40 mg tablet 40 mg PO DAILY 06/15/21 02/04/23 History ascorbic acid (vitamin C) 500 mg 500 mg PO HS 06/26/22 02/04/23 History capsule,extended release (Vitamin C) aspirin 81 mg tablet,delayed 81 mg PO DAILY 06/26/22 02/04/23 History release cholecalciferol (vitamin D3) 25 25 mcg PO HS 06/26/22 02/04/23 History mcg (1,000 unit) tablet nutritional supplement-fiber oral 1 ea DAILY 06/26/22 02/04/23 History liquid gabapentin 300 mg capsule 300 mg PO TID 10/10/22 02/04/23 History docusate sodium 100 mg capsule 100 mg PO DAILY 11/07/22 02/04/23 History Patient hx anesthesia problems: none Family hx anesthesia problems: none Results Review: All pre-operative results and documents have been reviewed as part of the pre-operative evaluation. [facility] Past Medical History Medical History Back pain Depression History of cardiovascular stress test History of postoperative nausea and vomiting Hyperlipidemia Hypertension Obesity NABOR (obstructive sleep apnea) Other meterman (current) drug therapy Prostate CA Surgical History Surgical History History of ankle surgery Left ankle x2 History of arthroscopy of left shoulder History of back surgery History of left shoulder replacement Family History Family History Father Liver cancer Sibling Cancer Social History Social History Smoking status: Former smoker Tobacco type: cigarettes Second hand tobacco smoke exposure: No Additional smoking assessment comments: STATES 1PK/WEEK/5YRS/QUIT 1976, VAGED 2YRS/QUIT 2016-DENIES ALL TOBACCO USE Alcohol intake: current Drinks per week: 2 Alcohol use details: socially Substance use: never Substance use type: does not use Lack of Transportation: No Lack of Food: Never True Current Housing: I Have Housing Concerned About Future Housing: No Difficulty Paying Gas/Electric Bills: No Difficulty Paying for Meds: No Currently Unemployed: No Education: Master's Degree or Higher Difficulty w/ Childcare or Family Care: No Living arrangements: with family Spiritual care concerns: No Anes - Eval Final PreProcedure Day of Procedure 02/04/23 11:02 Patient weight: obese Heart: regular rate and rhythm Lungs: decreased breath sounds Airway: Mallampati scale class II Neurological: alert and oriented Last oral intake: >/= 8 hours ASA classification: III Emergent: no Anesthetic plan: proceed Anesthesia type and monitoring: general LMA and standard monitoring Results Review: All pre-operative results and documents have been reviewed as part of the pre-operative evaluation. Informed Consent: The patient's anesthetic plan and its attendant risks and benefits were discussed with the patient/family/POA. Questions were solici
[2023-02-04] MEDS: LACTATED RINGERS 1,000 ML 30 ML IV CONT ×2 (11:06→14:41)
--- NOTE | 2023-02-04 11:25 | WPDHPUPDATE1 ---
History and Physical Update Update Date/Time: 02/04/23 11:25 History and Physical has been reviewed, including an updated exam of the patient. There are NO changes in the patient's condition. Risks, benefits, and alternatives have been discussed and questions answered. Patient agrees to proceed with procedure.
[2023-02-04] MEDS: ceFAZolin 3 GM/D5W 100 ML 100 ML IVPB (12:10)
--- NOTE | 2023-02-04 12:15 | WPDANESPNB ---
Anes - Peripheral Nerve Block Date/Time: 02/04/23 12:15 I have discussed with the patient/family/POA the placement of a peripheral nerve block for post-operative pain management, including associated risks, benefits, complications, and side effects. Alternative methods of post-operative analgesia were detailed. Questions were solicited and answers provided to the satisfaction of the patient/family/POA. Time-Out: A pre-procedural Time-Out was completed immediately before starting the procedure and confirmed: Patient Identification, Site, Procedure, Patient Position and the Availability of Requisite Equipment. Clinical Indications: Acute post-operative pain management requested by the operative surgeon. Nerve Block Insertion Note Anes-nerve block: adductor canal left Patient position: supine Skin prep: chlorhexidine Needle: 22 gauge, stimulating, insulated echogenic needle. Needle length: 80 mm Technique: ultrasound Technique comment: mid 2mg fent 100mcg Injectate: bupivacaine 0.5% with epi 5 mcg/ml (30ml no epi) and dexamethasone (mg) (4) Observations: tolerated well Complications: none Procedure start time:: 1200 Procedure end time:: 1206
[2023-02-04] MEDS: GENTAMICIN BONE CEMENT REFOBACIN 1 EACH TOPICAL (12:48)
[2023-02-04] MEDS: fentaNYL CITRATE INJ (*CRX) 100 MCG/2 ML VIAL 25 MCG IV PUSH ×4 (14:54→15:10)
--- NOTE | 2023-02-04 15:09 | SUR.PHASEI ---
1507: Simple mask removed.
--- NOTE | 2023-02-04 15:43 | P.OP_ITS ---
Procedure Note - Detailed Date of Procedure 02/04/23 Pre-op Diagnosis primary oa left knee Post-op Diagnosis Same Procedure Performed Total knee arthroplasty, left. Surgeon Sterling Sierra MD Mark Up Designer Amalia Stanley PA-C Anesthesia General and Regional (Subsartorial block.) Findings Excellent bone quality. Standard partial PCL release. Moderate medial release. Description of Procedure Preoperative antibiotics were given. The limb was prepped and draped in the usual sterile fashion with a well-padded tourniquet high on the thigh. The limb was exsanguinated and the tourniquet inflated to 300 mmHg. A longitudinal incision was created just medial to the patella. A trivector approach to the knee was performed. Arthrotomy was taken down through the joint capsule. No significant releases were initially taken. The femur was exposed and the F1 jig was applied. The coring tool was used to remove the cartilage for the F2 jig to sit flush with the bone. The jig was pinned and the distal cut carefully taken. Caliper measurements confirmed appropriate bony resections according to the preoperative templated plan. The F4 cutting jig for the femur was applied, at the standard rotation. The AP and anterior chamfer cuts were taken. The F5 jig was applied and the posterior chamfer cuts were taken. The tibia was prepared using the T1 jig, after removing cartilage for the jig contact points. Proper alignment was checked with the alignment josephine. The tibia was cut using the T1u guide. Gap balancing was performed. Gap measurements were taken and the knee was trialed. Excellent alignment and soft tissue balancing was confirmed. The posterior cruciate ligament was recessed along the proximal tibia. The patella was cut for resurfacing. Three lug holes were drilled. Meniscal remnants were removed. The trial components were assembled. Excellent range of motion and proper soft tissue balancing were confirmed throughout the full range of motion. Patellar tracking was excellent. The knee was copiously irrigated periodically throughout the procedure. The real implants were cemented into position. Excess cement was carefully removed. The wound was closed in layers with interrupted #1 Vicryl suture, #2 strata fix suture, 2-0 strata fix suture, 3-0 strata fix suture. Steri-Strips placed on the skin with the knee flexed. Sterile bulky dressing applied. The patient was brought to the recovery room in stable condition. There were no complications. [Physician assistant store manager trainee, Amalia Stanley PA-C, required for surgery; including patient positioning, draping, tissue retraction, maintaining instrument position, wound closure, and dressing placement.] Implants Conform[employer] Imprint total knee arthroplasty. Cemented. Cruciate retaining. 8 mm insert. Oval patella. Estimated Blood Loss -100.0 Drains No Complications No immediate complications Condition Stable Disposition PACU [facility] Billing Surgery - Charge Forward: Surgery Billing
--- NOTE | 2023-02-04 15:48 | SUR.PHASEI ---
RN tried to call report to floor RN and she has to call back.
--- NOTE | 2023-02-04 17:28 | PC.NURSE ---
This patient, Enrique Gaitan, was admitted to Medical Room 344-01. Patient/family oriented to hospital policies and general routines including ID bracelet, bed and alarms, visiting hours, pain management, procedures, bathroom and other care routines, personal items, smoking policy, room service/diet, and visiting hours. Information on how to activate the Rapid Response Team has been discussed. Patient/Family are encouraged to report perceived risks to care and to ask questions if they do not understand what they are told or what they should do.
[2023-02-04] MEDS: GABAPENTIN 300 MG CAPSULE PO (17:57)
[2023-02-04] MEDS: ASPIRIN 81 MG ENTERIC TABLET PO (17:58)
[2023-02-04] MEDS: ceFAZolin 2 GM/D5W 50 ML 2 GM/50 ML BAG IVPB (21:00)
[2023-02-04] MEDS: MELOXICAM 7.5 MG TABLET PO (21:01)
[2023-02-04] MEDS: SENNA/DOCUSATE SODIUM TABLET 2 TAB PO (21:01)
[2023-02-04] MEDS: FAMOTIDINE 20 MG TABLET PO (21:01)
[2023-02-05 02:08] VITALS: BP 133/63; PULSE 101; RESP 18; TEMP 37; O2SAT 99
[2023-02-05] MEDS: ceFAZolin 2 GM/D5W 50 ML 2 GM/50 ML BAG IVPB ×2 (05:21→12:17)
[2023-02-05] MEDS: ACETAMINOPHEN 500 MG TABLET 1000 MG PO ×2 (05:21→12:19)
[2023-02-05 05:43] LABS: Basophils Percent Auto 0.1 % (0.2-1.2); Hematocrit 37.2 % (42.0-52.0); Immature Granulocyte Absolute 0.05 K/mm3 (0.00-0.031); Immature Granulocyte Percent A 0.4 % (0-0.5); Lymphocytes Absolute Auto 0.94 K/mm3 (0.9-3.2); Mean Corpuscular HGB Conc 34.9 g/dl (32-36); Mean Corpuscular Hemoglobin 30.8 pg (26-34); Mean Corpuscular Volume 88.2 fl (80-100); Monocytes Absolute Auto 0.8 K/mm3 (0.1-0.6); Monocytes Percent Auto 6.3 % (2.6-8.5); Neutrophils Absolute Auto 11.6 K/mm3 (1.3-6.7); Neutrophils Percent Auto 86.2 % (45.5-73.1); Platelet Count Result 165 k/mm3 (150-375); Red Blood Count 4.22 M/mm3 (4.6-6.20); Red Cell Distribution Width 12.8 % (11.5-14.5); White Blood Count 13.4 K/mm3 (4.5-10.0)
[2023-02-05 05:58] LABS: Anion Gap 6 mmol/L (8-16); Blood Urea Nitrogen 14 mg/dL (9-20); Calcium 8.1 mg/dL (8.4-10.2); Carbon Dioxide 27 mmol/L (22-30); Chloride 100 mmol/L (98-107); Estimated CRCL calculation 124 ml/min; Estimated Glomerular Filt Rate > 60; Glucose 125 mg/dL (65-110); Potassium 3.9 mmol/L (3.4-5.0); Sodium 133 mmol/L (137-145)
[2023-02-05 06:09] VITALS: BP 125/75; PULSE 80; RESP 16; TEMP 36.9; O2SAT 99
--- NOTE | 2023-02-05 07:54 | PM.DS ---
DS: Admitting Diagnosis Discharge Date 02/05/23 Admitting Diagnosis OA knee Left DS: Discharge Diagnosis Discharge Diagnosis (1) Status post total left knee replacement: Code(s): Z96.652 - Presence of left artificial knee joint Status: Acute Assessment and Plan: Postop day 1: Left total knee arthroplasty. Patient tolerated procedure well. No complications. Pain manageable with pain medication. No numbness or tingling. We had a lengthy discussion regarding postoperative wound care, limitations, expectations, and exercises. Patient shows good understanding. He has had initial physical therapy and is tolerating it well. DVT prophylaxis: 81 mg baby aspirin b.i.d. for 14 days. Pain medication: Percocet. Meloxicam. Prednisone. Antibiotic: Keflex Patient has followup appointment with Dr. Sierra in 3 weeks. DS: Summary Hospital Course Reason for hospitalization: Total knee arthroplasty Hospital Course: Patient tolerated procedure well. Has had initial PT/OT. Status at Discharge Functional status at discharge: uses cane/walker Overall status at discharge: patient is progressing back to baseline Time Spent with Patient Time attestation: Total time spent providing and/or coordinating discharge services: Exam Narrative: 67-year-old overweight male. Resting comfortably in chair. Alert and oriented x3. No acute distress. Wearing compression socks bilaterally. Dressing dry and intact with small area of bloody drainage on Mepilex. Mild swelling. No ecchymosis. No erythema. No hematoma. Range of motion limited due to pain. Calf nontender. Neurologic status intact. No varicosities. Distal pulses palpable. DS: Data Data Completed and Pending Labs on day of discharge: Labs from last 24 hours 02/05/23 02/05/23 02/04/23 05:22 05:22 10:17 WBC 13.4 H RBC 4.22 L Hgb 13.0 L Hct 37.2 L MCV 88.2 MCH 30.8 MCHC 34.9 RDW 12.8 Plt Count 165 MPV 9.0 Immature Gran % (Auto) 0.4 Neut % (Auto) 86.2 H Lymph % (Auto) 7.0 L [place] % (Auto) 6.3 Eos % (Auto) 0.0 Baso % (Auto) 0.1 L Lymph # (Auto) 0.94 [place] # (Auto) 0.8 H Eos # (Auto) 0.0 Baso # (Auto) 0.0 Abs Immat Gran (auto) 0.05 H Absolute Neuts (auto) 11.6 H Absolute Nucleated RBC 0.0 Nucleated RBC % 0.0 Sodium 133 L Potassium 3.9 Chloride 100 Carbon Dioxide 27 Anion Gap 6 L BUN 14 Creatinine 0.70 Estim Creat Clear Calc 124 Estimated GFR > 60 Glucose 125 H Calcium 8.1 L Blood Type O Positive Antibody Screen Negative Discharge Plan Discharge Patient Disposition: Home, Self-Care Discharge Instructions: see green instruction sheets Stand Alone Forms: General Discharge Instructions Follow-up/Referrals: Amalia Stanley PA [Physician Production Engineer] - Discharge Medications: New meloxicam 15 mg tablet 15 mg PO DAILY Qty: 30 0RF Rx Instructions: Cut in half. Take 1/2 in morning and 1/2 at night. Take with food. Stop if stomach upset. prednisone 5 mg tablet 5 mg PO DAILY 21 Days Qty: 21 0RF aspirin 81 mg tablet,delayed release (DR/EC) 81 mg PO BID 14 Days Qty: 28 0RF oxycodone-acetaminophen 5-325 mg tablet 1 - 2 tablet PO Q4-6H MDD 6 PRN (Reason: pain) Qty: 30 0RF cephalexin 500 mg capsule 500 mg PO BID 10 Days Qty: 20 0RF Rx Instructions: Take twice a day for 10 days. Continued docusate sodium 100 mg capsule 100 mg PO DAILY pravastatin 40 mg tablet 40 mg PO DAILY Label Comments: ISH hydrochlorothiazide 50 mg tablet 50 mg PO DAILY Label Comments: QAM losartan 100 mg tablet 100 mg PO DAILY Label Comments: QAM fluoxetine 20 mg capsule 20 mg PO DAILY aspirin 81 mg Tablet,Delayed Release (Dr/Ec) 81 mg PO DAILY Hold Instructions: Resume on 07/11/22. Label Comments: ISH escoto
[2023-02-05] MEDS: hydroCHLOROthiazide 25 MG TABLET 50 MG PO (09:49)
[2023-02-05] MEDS: PRAVASTATIN SODIUM 20 MG TABLET 40 MG PO (09:49)
[2023-02-05] MEDS: predniSONE 5 MG TABLET PO (09:49)
[2023-02-05] MEDS: LOSARTAN POTASSIUM 100 MG TABLET PO (09:49)
[2023-02-05] MEDS: SENNA/DOCUSATE SODIUM TABLET 2 TAB PO (09:49)
[2023-02-05] MEDS: GABAPENTIN 300 MG CAPSULE PO (09:49)
[2023-02-05] MEDS: FLUoxetine HCL 20 MG CAPSULE PO (09:49)
[2023-02-05] MEDS: MELOXICAM 7.5 MG TABLET PO (09:49)
[2023-02-05] MEDS: ASPIRIN 81 MG ENTERIC TABLET PO (09:49)
[2023-02-05] MEDS: polyethylene glycoL 3350 17 GM POWD.PACK PO (09:49)
[2023-02-05] MEDS: oxyCODONE HCL (*CRX) 5 MG TAB IR PO (09:57)
[2023-02-05 10:09] VITALS: BP 150/73; PULSE 67; RESP 16; TEMP 37; O2SAT 98
--- NOTE | 2023-02-05 10:12 | WPDANESPN ---
Anes - Prog Note Post-Op Date/Time: 02/05/23 10:12 Cardiovascular status: normal Respiratory status: normal Airway patency: baseline Mental status: baseline Post-Op hydration status: normal Vital Signs: Last Vital Signs Temp 36.9 C 02/05/23 06:09 Pulse 80 02/05/23 06:09 Resp 16 02/05/23 06:09 BP 125/75 02/05/23 06:09 Pulse Ox 99 02/05/23 06:09 O2 Del Method Room Air 02/05/23 07:55 O2 Flow Rate 8 02/04/23 14:55 Pain Score (VAS): 12/21 I/O: Intake & Output 02/04/23 02/05/23 02/05/23 23:59 07:59 15:59 Intake Total 300 50 400 Balance 300 50 400 Laboratory Tests 02/05/23 05:22 02/05/23 05:22 02/04/23 02/05/23 02/05/23 10:17 05:22 05:22 WBC 13.4 H RBC 4.22 L Hgb 13.0 L Hct 37.2 L MCV 88.2 MCH 30.8 MCHC 34.9 RDW 12.8 Plt Count 165 MPV 9.0 Immature Gran % (Auto) 0.4 Neut % (Auto) 86.2 H Lymph % (Auto) 7.0 L [place] % (Auto) 6.3 Eos % (Auto) 0.0 Baso % (Auto) 0.1 L Lymph # (Auto) 0.94 [place] # (Auto) 0.8 H Eos # (Auto) 0.0 Baso # (Auto) 0.0 Abs Immat Gran (auto) 0.05 H Absolute Neuts (auto) 11.6 H Absolute Nucleated RBC 0.0 Nucleated RBC % 0.0 Sodium 133 L Potassium 3.9 Chloride 100 Carbon Dioxide 27 Anion Gap 6 L BUN 14 Creatinine 0.70 Estim Creat Clear Calc 124 Estimated GFR > 60 Glucose 125 H Calcium 8.1 L Blood Type O Positive Antibody Screen Negative Post-procedural complaints: none Patient Feedback: Patient satisfied with anesthetic care.
[2023-02-05 11:23] VITALS: O2SAT 98
== END 2023-02-05 13:10 | disposition home or self-care (01) ==
LOC: ANHSURGERY 13:50 → ANH3MED 16:26
PROVIDERS: Physician Assistant Surgical; PCP Internal Medicine; Visit Provider Orthopaedic Surgery
PROC: (CPT 27447; principal; 2023-02-04 12:00)
DX: M17.12 Unilateral primary osteoarthritis, left knee (principal); G89.18 Other acute postprocedural pain; I10 Essential (primary) hypertension; E78.5 Hyperlipidemia, unspecified; G47.33 Obstructive sleep apnea (adult) (pediatric); F32.A Depression, unspecified; Z85.46 Personal history of malignant neoplasm of prostate; Z79.82 Long term (current) use of aspirin; Z87.891 Personal history of nicotine dependence; E66.9 Obesity, unspecified; Z68.32 Body mass index [BMI] 32.0-32.9, adult
CPT/HCPCS: 27447; 64447; 36415; 73560; 80048; 85025; 86850; 86900; 86901; 97110; 97161; 97165; 97535; A9270; C1713; C1776; J0171; J0690; J1100; J1885; J2250; J2270; J2405; J2704; J2795; J3010; J7120; J7512

== ENCOUNTER 2024-03-11 12:29 | Outpatient (CLI) | payer MEDICARE, OTHER, SELFPAY ==
--- NOTE | ~2024-03-11 | MR_ITS ---
MRI of the right shoulder Technique: Axial proton-density fat-sat images, coronal proton density fat-sat and T2 fat-sat images, and sagittal T1-weighted and T2 fat-sat images were acquired. Clinical History: Osteoarthritis Findings: There is moderate degenerative change of the AC joint, with small subacromial spur present. Coracoclavicular, coracoacromial, and coracohumeral ligaments are intact. There is a tiny 3 mm low-grade partial thickness articular surface tear at the distal infraspinatus i nsertion. No high-grade partial or full-thickness tear of the supraspinatus or infraspinatus tendon s een. There is mild to moderate tendinosis of the stent. Subscapularis tendon is intact with moderate tendinosis. Tendon of long head of biceps is intact. There is probable degenerative SLAP tear of the labrum. There is diffuse high-grade chondromalacia of the glenoid with multiple areas of subchondral cystic c hange. Small inferomedial humeral head osteophyte present with mild chondral malacia the humeral head . Inferior glenohumeral ligament is intact. There is minimal glenohumeral joint effusion. No fluid di stention of the subacromial/subdeltoid bursa. No muscle/edema. Impression: Moderate to advanced degenerative change of the glenohumeral joint, as detailed above. Rotator cuff tendinosis with tiny 3 mm low-grade partial thickness articular surface tear at the dist al infraspinatus tendon insertion. Probable degenerative SLAP tear of the labrum. Moderate AC joint degenerative change. Reviewed, dictated and finalized at [facility]. Impression: Moderate to advanced degenerative change of the glenohumeral joint, as detailed above. Rotator cuff tendinosis with tiny 3 mm low-grade partial thickness articular azar rface tear at the distal infraspinatus tendon insertion. Probable degenerative SLAP tear of the labrum. Moderate AC joint degenerative change.
== END 2024-03-11 12:30 | disposition home or self-care (01) ==
LOC: ANHIMG 12:29
PROVIDERS: PCP Internal Medicine; Visit Provider Orthopaedic Surgery
DX: M19.011 Primary osteoarthritis, right shoulder (principal); M75.31 Calcific tendinitis of right shoulder
CPT/HCPCS: 73221

== ENCOUNTER 2024-05-25 09:38 | Outpatient (CLI) | payer MEDICARE, OTHER, SELFPAY ==
--- NOTE | 2024-05-25 10:41 | ECG_ITS ---
Test Date: 2024-05-25 10:58:00 Measurements Intervals [place] Rate: 60 P: -75 MN: 139 QRS: -35 QRSD: 94 T: 8 QT: 416 QTc: 417 Interpretive Statements SINUS RHYTHM MARKED LEFT AXIS DEVIATION [QRS AXIS < -30] INCOMPLETE RIGHT BUNDLE BRANCH BLOCK [90+ ms QRS DURATION, TERMINAL R IN V1/V2, 40+ ms S IN I/aVL/V4/V5/V6] ABNORMAL ECG No previous ECG available for comparison Electronically Signed On 05-25-2024 12:37:19 CDT by Enrique Corea M.D.
[2024-05-25 11:18] LABS: Basophils Percent Auto 0.7 % (0.2-1.2); Eosinophils Absolute Auto 0.1 K/mm3 (0-0.3); Eosinophils Percent Auto 2.6 % (0-4.4); Hematocrit 38.7 % (42.0-52.0); Hemoglobin 14.1 g/dL (14.0-18.0); Immature Granulocyte Absolute 0.03 K/mm3 (0.00-0.031); Immature Granulocyte Percent A 0.6 % (0-0.5); Lymphocytes Absolute Auto 1.44 K/mm3 (0.9-3.2); Lymphocytes Percent Auto 26.8 % (18.3-44.2); Mean Corpuscular HGB Conc 36.4 g/dl (32-36); Mean Corpuscular Volume 87.8 fl (80-100); Mean Platelet Volume 9.2 fl (7.4-10.4); Monocytes Absolute Auto 0.5 K/mm3 (0.1-0.6); Monocytes Percent Auto 8.6 % (2.6-8.5); Neutrophils Absolute Auto 3.3 K/mm3 (1.3-6.7); Neutrophils Percent Auto 60.7 % (45.5-73.1); Platelet Count Result 163 k/mm3 (150-375); Red Blood Count 4.41 M/mm3 (4.6-6.20); Red Cell Distribution Width 12.8 % (11.5-14.5); White Blood Count 5.4 K/mm3 (4.5-10.0)
[2024-05-25 11:59] LABS: Anion Gap 11 mmol/L (4-12); Blood Urea Nitrogen 12 mg/dL (9-20); Calcium 9.3 mg/dL (8.4-10.2); Carbon Dioxide 28 mmol/L (22-30); Chloride 100 mmol/L (98-107); Estimated Glomerular Filt Rate > 60; Glucose 100 mg/dL (65-110); Potassium 3.9 mmol/L (3.4-5.0); Sodium 139 mmol/L (137-145)
[2024-05-25 13:01] LABS: MRSA (PCR) NOT DETECTED (NOT DETECTE)
== END 2024-05-25 09:39 | disposition home or self-care (01) ==
LOC: ANHSURGERY 09:42
PROVIDERS: Anesthesiology; PCP Internal Medicine; Visit Provider Orthopaedic Surgery
DX: M19.011 Primary osteoarthritis, right shoulder (principal); I10 Essential (primary) hypertension; I45.10 Unspecified right bundle-branch block
CPT/HCPCS: 36415; 80048; 85025; 87641; 93005

== ENCOUNTER 2024-06-16 01:24 | Day surgery (SDC) | payer MEDICARE, OTHER, SELFPAY ==
--- NOTE | 2024-05-25 10:23 | PC.NURSE ---
Report to the Outpatient Waiting Room, entrance under the green pavilion located off [facility], at time __6:00 AM on date __06/16/24 . Planned Procedure Time: __7:30 AM . Time changes happen often and if your time is changed the preop area will call you the afternoon before. - You and your visitor will be asked to self-screen and do not enter if you have any COVID symptoms. - A mask is optional within the hospital at this time. Patients may have clear liquids (water, carbonated beverages, clear teas, apple juice) until 3 hours prior to surgery (4:30AM)with a maximum of 20 ounces. - No food from midnight until time of surgery - Infants may have breast milk until 4 hours before surgery, formula 6 hours prior to surgery. - Children will be allowed to drink immediately following surgery. If applicable, please bring a bottle or sippy cup to assist with drinking. Juice, water, soda, and popsicles are readily available. For infants on formula, please bring formula the day of surgery. Pacifiers are allowed. Take the following medications with a SIP of water the morning of surgery: ___FLUOXETINE,GABAPENTIN DO NOT STOP ANY OF YOUR OTHER PRESCRIPTION MEDICATIONS PRIOR TO SURGERY ?EXCEPT THE FOLLOWING Medications to discontinue per physician ____HOLD MELOXICAM 7 DAYS PRE OP PER DR RICHMOND.LAST DOSE 06/08/24.HOLD ALL VITAMINS AND SUPPLEMENTS 3 DAYS PRE OP.LAST DOSE 06/12/24 MAY TAKE TYLENOL IF NEEDED FOR PAIN Please no make-up, nail tristanian, hairspray, perfume, deodorant, or body powder the day of surgery. No jewelry (including any body piercings) or valuables the day of surgery, leave them at home. Please take a shower or bath the night before, or the morning of, surgery with an antibacterial soap. Wear comfortable, loose fitting clothing. Children are encouraged to wear pajamas. - Jewelry must be removed prior to entering the operating room. Rings and piercings that are not removed may be cut off. - The hospital will not accept responsibility for valuables. - Please leave all valuables, including medications, at home the day of surgery. If you are going home after surgery, a licensed national flatbed truck driver must drive you home. - NO public transportation without another adult if you receive anesthesia. - We recommend that an adult stay with you for 24 hours following discharge. - We also recommend that you do not drive, make important decision, drink alcoholic beverages, or take any drugs that were not prescribed by your health care provider for at least 24 hours after your discharge time. Follow any additional instructions given to you from your surgeon. If you or anyone in your household have experienced Covid symptoms in the past week, please notify your surgeon or the nurse liaison at the phone number below for possible testing. VERBAL AND WRITTEN instructions given to _PATIENT AND ZEINA and asked if any additional questions and then verbalized understanding. Patient advised to call surgeon office or pre surgery nurse liaison [phone] if any additional questions.
[2024-05-25 10:40] VITALS: BP 134/83; PULSE 61; RESP 18; TEMP 36.6; O2SAT 98; BMI 34.0
[2024-06-16] VITALS (16 sets, daily range): BP systolic 99–134; BP diastolic 52–71; PULSE 62–78; RESP 12–20; TEMP 36.2–36.7; O2SAT 95–99
--- NOTE | ~2024-06-16 | XR_ITS ---
EXAMINATION: XR shoulder RT min 2V DATE: 06/16/2024 11:34 INDICATION: Right shoulder arthroplasty TECHNIQUE: 2 views right shoulder FINDINGS: There is a right shoulder arthroplasty in expected position. Subcutaneous gas with soft ti ssue swelling are consistent with recent surgery. IMPRESSION: 1. Recent right shoulder arthroplasty. Reviewed, dictated and finalized at location B.
[2024-06-16] MEDS: ACETAMINOPHEN 500 MG TABLET 1000 MG PO (06:13)
[2024-06-16] MEDS: LACTATED RINGERS 1,000 ML 30 ML IV CONT ×2 (06:22→10:51)
--- NOTE | 2024-06-16 06:31 | WPDANESEPPF ---
Anes - Initial Pre Proc Eval Procedure: Operation Date: 06/16/24 07:30 Proposed Procedures p Right Anatomic Total Shoulder Arthroplasty - Sterling Sierra MD Date/Time: 06/16/24 06:31 Surgeon: Sterling Sierra MD Pre Op Diagnosis: Prim O A Rt Shoulder Patient Data Age: 68 Gender: M Height: 1.91 m Weight: 123.4 kg Last Vital Signs Temp 36.6 C 05/25/24 10:40 Pulse 61 05/25/24 10:40 Resp 18 05/25/24 10:40 BP 134/83 05/25/24 10:40 Pulse Ox 98 05/25/24 10:40 O2 Del Method Room Air 05/25/24 10:40 Allergies Allergy/AdvReac Type Severity Reaction Status Date / Time No Known Allergies Allergy Verified 06/16/24 06:26 Home Medications Medication Instructions Recorded Confirmed Type fluoxetine 20 mg capsule 20 mg PO DAILY 06/15/21 06/16/24 History hydrochlorothiazide 50 mg tablet 50 mg PO DAILY 06/15/21 06/16/24 History losartan 100 mg tablet 100 mg PO DAILY 06/15/21 06/16/24 History pravastatin 40 mg tablet 40 mg PO DAILY 06/15/21 06/16/24 History ascorbic acid (vitamin C) 500 mg 1,000 mg PO HS 06/26/22 06/16/24 History capsule,extended release (Vitamin C) nutritional supplement-fiber oral 1 ea PO DAILY 06/26/22 06/16/24 History liquid gabapentin 300 mg capsule 300 mg PO BID 10/10/22 06/16/24 History meloxicam 15 mg tablet 15 mg PO DAILY 02/05/24 06/16/24 History acetaminophen 500 mg capsule 1,000 mg PO Q6H PRN Pain 05/25/24 06/16/24 History cholecalciferol (vitamin D3) 125 125 mcg PO HS 05/25/24 06/16/24 History mcg (5,000 unit) capsule terazosin 1 mg capsule 1 mg PO HS 05/25/24 06/16/24 History Patient hx anesthesia problems: none Family hx anesthesia problems: none Results Review: All pre-operative results and documents have been reviewed as part of the pre-operative evaluation. 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 Prostate CA Surgical History Surgical History History of ankle surgery Left ankle x2 History of arthroscopy of left shoulder History of back surgery History of left knee replacement (~02/04/23) Conformis (Imprint) History of left shoulder replacement Family History Family History Father Liver cancer Sibling Cancer Social History Social History Smoking packs per day: 1 Smoking cigarettes per day: 20.0 Years smoked: 3 Smoking pack-years: 3.00 Smoking status: Former smoker Tobacco type: cigarettes Second hand tobacco smoke exposure: No Smoking end date: 10/14/76 Additional smoking assessment comments: STATES 1PK/WEEK/5YRS/QUIT 1976, VAGED 2YRS/QUIT 2016-DENIES ALL TOBACCO USE Alcohol intake: current Drinks per week: 3 Alcohol use details: socially Substance use: never Substance use type: does not use Do You Feel Safe in your Home?: Yes Lack of Transportation: No Lack of Food: Never True Current Housing: I Have Housing Concerned About Future Housing: No Difficulty Paying Gas/Electric Bills: No Difficulty Paying for Meds: No Currently Unemployed: No Education: Master's Degree or Higher Difficulty w/ Childcare or Family Care: No Living arrangements: with family Spiritual care concerns: No Anes - Eval Final PreProcedure Day of Procedure 06/16/24 06:31 Patient weight: obese Heart: regular rate and rhythm Lungs: clear to auscultation Airway: Mallampati scale class II Neurological: alert and oriented Last oral intake: >/= 8 hours ASA classification: III Emergent: no Anesthetic plan: proceed Anesthesia type and monitoring: g
[2024-06-16] MEDS: TRANEXAMIC ACID 1,000MG/ISO100 1,000 MG/100 ML BAG 200 MG IVPB ×2 (07:06→10:11)
--- NOTE | 2024-06-16 07:22 | WPDHPUPDATE1 ---
History and Physical Update Update Date/Time: 06/16/24 07:22 History and Physical has been reviewed, including an updated exam of the patient. There are NO changes in the patient's condition. Risks, benefits, and alternatives have been discussed and questions answered. Patient agrees to proceed with procedure.
[2024-06-16] MEDS: ceFAZolin 3 GM/D5W 100 ML 100 ML IVPB (07:43)
[2024-06-16] MEDS: SODIUM CHLORIDE 0.9% IV 37.7 ML, MORPHINE SULFATE INJ (*CRX) 2 MG, ROPivacaine HCL 1% 2... INFILTRATE (08:28)
[2024-06-16] MEDS: VANCOMYCIN HCL 1,000 MG VIAL 1000 MG TOPICAL (08:29)
--- NOTE | 2024-06-16 10:55 | W.PM.PROC2 ---
Procedure Note - Detailed Date of Procedure 06/16/24 Pre-op Diagnosis Right shoulder osteoarthritis. Post-op Diagnosis Same Procedure Performed Right 1. Anatomic total shoulder arthroplasty 2. Lesser tuberosity osteotomy Surgeon Sterling Sierra MD Anesthesia General Indications Primary glenohumeral arthritis. Intact rotator cuff. Minimal glenoid wear. Findings Excellent bone quality. Very large stature and muscularity. Largest size humeral implant. Lesser tuberosity osteotomy. Minimal anterior and inferior correction of the glenoid component. Description of Procedure Preoperative antibiotics were given. An interscalene block placed in the holding area. The patient was brought to the operating room and a general anesthetic was administered. He was carefully placed in the chair position. Head and neck, and bony prominences were carefully padded and positioned. The shoulder was prepped and draped in the usual sterile fashion. A longitudinal incision was created over the deltopectoral interval. The cephalic vein was identified and protected. It was retracted medially. The biceps was released and later tenodesed to the pectoralis tendon.The upper border of the pectoralis tendon was released. A lesser tuberosity osteotomy was created with osteotomes. It was tagged for later repair. The inferior capsule was exposed and the humeral head was delivered into the wound. An anatomic head cut was taken utilizing the external alignment jig. The cut protector was placed and attention was turned to the glenoid. The glenohumeral ligament was released. The anterior capsule partially excised superiorly and released inferiorly. The glenoid labrum was excised along with the biceps stump. The capsule was released inferiorly including the triceps attachment. Posterior capsular release was not performed. Anatomic landmarks on the glenoid were identified and the drill guide was placed slightly superior to match the anticipated humeral articulating area. The guide pin was placed followed by the one-step reaming to approximately 2-3 mm depth. The superior and inferior drill was used for the pegs. The bone was irrigated and prepared. The real component was cemented into position. Excess cement was carefully removed. Attention was turned back to the humerus. The opening reamer was placed followed by the 0 broach. The lesser tuberosity osteotomy was drilled 3 times and a Belle suture Passer was used to pass a #2 Ethibond suture shuttle. The real implant was inserted with excellent Press-Fit. The #5 Ethibond modified Guero-Mg sutures from the lesser tuberosity osteotomy were shuttled laterally. The osteotomy was returned to its anatomic position and secured. Supplemental #1 Vicryl were used to secure the osteotomy, and one suture was placed in the rotator interval. The upper border of the pectoralis was repaired as well. The biceps was tenodesed along with the pectoralis repair. The wound was irrigated. 1 g of vancomycin power was introduced into the wound. The deltopectoral interval was reapproximated with 2-0 Vicryl suture and the remaining skin 2-0 and 3-0 Stratafix suture. Steri-Strips were placed on the skin with a Mepilex bandage. Sling was applied and the patient extubated. An additional pain relieving cocktail was placed in the periarticular tissues during the procedure. Implants Shoulder Innovations stemless humeral implant size 1. 21 mm x 52 mm R28 humeral head. 24 mm diameter circular in line peg inset glenoid component. One batch of Depuy CMW 2 quick set, gentamicin bone cement. Estimated Blood Loss 300 Drains No Packing No Pathology None sent Complications No immediate complications Condition Stable Disposition PACU [facility] Billing Surgery - Charge Forward: Surgery Billing
--- NOTE | 2024-06-16 12:05 | PC.NURSE ---
This patient, Enrique Gaitan, was admitted to [facility] Surg Room 326-01. Patient/family oriented to hospital policies and general routines including ID bracelet, bed and alarms, visiting hours, pain management, procedures, bathroom and other care routines, personal items, smoking policy, room service/diet, and visiting hours. Information on how to activate the Rapid Response Team has been discussed. Patient/Family are encouraged to report perceived risks to care and to ask questions if they do not understand what they are told or what they should do.
[2024-06-16] MEDS: ACETAMINOPHEN 325 MG TABLET 650 MG PO ×3 (12:37→23:56)
[2024-06-16] MEDS: oxyCODONE/ACETAMINOPHEN (*CRX) 10-325 MG TABLET 1 TAB PO (12:38)
[2024-06-16] MEDS: SODIUM CHLORIDE 0.9% IV 1,000 ML 125 ML IV CONT (12:47)
[2024-06-16] MEDS: ceFAZolin 2 GM/D5W 50 ML 2 GM/50 ML BAG IVPB ×2 (15:59→23:52)
--- NOTE | 2024-06-16 16:07 | PCPTNOTE ---
On 06/16/24, the student, [Deanna Paulino], provided care and completed [facility] documentation on this patient. I have reviewed the student's documentation and agree with the findings.
[2024-06-16] MEDS: SENNA/DOCUSATE SODIUM TABLET 2 TAB PO (17:08)
[2024-06-16] MEDS: predniSONE 5 MG TABLET PO (17:09)
[2024-06-16] MEDS: ASPIRIN 81 MG ENTERIC TABLET PO (20:09)
[2024-06-16] MEDS: PRAVASTATIN SODIUM 20 MG TABLET 40 MG PO (20:09)
[2024-06-16] MEDS: TERAZOSIN HCL 1 MG CAPSULE PO (20:09)
[2024-06-16] MEDS: GABAPENTIN 300 MG CAPSULE PO (20:10)
[2024-06-16] MEDS: CHOLECALCIFEROL 5,000 UNITS TABLET 5000 UNITS BY MOUTH (20:10)
[2024-06-17 04:10] VITALS: BP 140/79; PULSE 70; RESP 18; TEMP 37.3; O2SAT 97
[2024-06-17] MEDS: ACETAMINOPHEN 325 MG TABLET 650 MG PO (06:11)
[2024-06-17 06:33] LABS: Basophils Percent Auto 0.2 % (0.2-1.2); Eosinophils Percent Auto 0.2 % (0-4.4); Hematocrit 33.9 % (42.0-52.0); Hemoglobin 11.6 g/dL (14.0-18.0); Immature Granulocyte Absolute 0.04 K/mm3 (0.00-0.031); Immature Granulocyte Percent A 0.4 % (0-0.5); Lymphocytes Absolute Auto 1.01 K/mm3 (0.9-3.2); Lymphocytes Percent Auto 10.7 % (18.3-44.2); Mean Corpuscular HGB Conc 34.2 g/dl (32-36); Mean Corpuscular Hemoglobin 30.9 pg (26-34); Mean Corpuscular Volume 90.2 fl (80-100); Mean Platelet Volume 9.1 fl (7.4-10.4); Monocytes Absolute Auto 0.9 K/mm3 (0.1-0.6); Monocytes Percent Auto 9.5 % (2.6-8.5); Neutrophils Absolute Auto 7.4 K/mm3 (1.3-6.7); Platelet Count Result 143 k/mm3 (150-375); Red Blood Count 3.76 M/mm3 (4.6-6.20); Red Cell Distribution Width 13.2 % (11.5-14.5); White Blood Count 9.4 K/mm3 (4.5-10.0)
[2024-06-17 06:40] LABS: Anion Gap 9 mmol/L (4-12); Blood Urea Nitrogen 14 mg/dL (9-20); Calcium 8.4 mg/dL (8.4-10.2); Carbon Dioxide 26 mmol/L (22-30); Chloride 99 mmol/L (98-107); Estimated CRCL calculation 124 ml/min; Estimated Glomerular Filt Rate > 60; Glucose 123 mg/dL (65-110); Potassium 3.4 mmol/L (3.4-5.0); Sodium 134 mmol/L (137-145)
[2024-06-17] MEDS: hydroCHLOROthiazide 25 MG TABLET 50 MG PO (08:10)
[2024-06-17] MEDS: ceFAZolin 2 GM/D5W 50 ML 2 GM/50 ML BAG IVPB (08:10)
[2024-06-17] MEDS: MELOXICAM 7.5 MG TABLET 15 MG PO (08:10)
[2024-06-17] MEDS: SENNA/DOCUSATE SODIUM TABLET 2 TAB PO (08:10)
[2024-06-17] MEDS: predniSONE 5 MG TABLET PO (08:10)
[2024-06-17] MEDS: FLUoxetine HCL 20 MG CAPSULE PO (08:10)
[2024-06-17] MEDS: polyethylene glycoL 3350 17 GM POWD.PACK PO (08:11)
[2024-06-17] MEDS: GABAPENTIN 300 MG CAPSULE PO (08:11)
[2024-06-17 09:43] VITALS: BP 129/66; PULSE 64; RESP 18; TEMP 36.4; O2SAT 99
--- NOTE | 2024-06-17 16:27 | PM.DS ---
DS: Admitting Diagnosis Discharge Date 06/17/24 Admitting Diagnosis DJD right shoulder. DS: Discharge Diagnosis Discharge Diagnosis (1) Status post total replacement of right shoulder: Code(s): Z96.611 - Presence of right artificial shoulder joint Status: Acute DS: Summary Hospital Course Reason for hospitalization: Total shoulder arthroplasty. Hospital Course: Tolerated surgery well. Progressed appropriately with therapy. Status at Discharge Functional status at discharge: independent ambulation Overall status at discharge: patient is progressing back to baseline Time Spent with Patient Time attestation: Total time spent providing and/or coordinating discharge services: Exam Const: General: no acute distress Resp: Effort & Inspection: normal respiratory effort Skin: Other: Wound healing well. Mepilex dressing intact. No hematoma or drainage. Sling applied appropriately. Deltoid muscle fires. Axillary nerve sensation intact. Good carcass splitter strength. No edema. radial pulse palpable. Neuro: Motor exam (neuro): 5/5 motor strength present throughout Sensory Exam: normal sensation Psych: Mental Status: mental status grossly normal Speech and movement: Normal speech and movement present DS: Data Data Completed and Pending Labs on day of discharge: Labs from last 24 hours 06/17/24 06:11 WBC 9.4 RBC 3.76 L Hgb 11.6 L Hct 33.9 L MCV 90.2 MCH 30.9 MCHC 34.2 RDW 13.2 Plt Count 143 L MPV 9.1 Immature Gran % (Auto) 0.4 Neut % (Auto) 79.0 H Lymph % (Auto) 10.7 L [place] % (Auto) 9.5 H Eos % (Auto) 0.2 Baso % (Auto) 0.2 Lymph # (Auto) 1.01 [place] # (Auto) 0.9 H Eos # (Auto) 0.0 Baso # (Auto) 0.0 Abs Immat Gran (auto) 0.04 H Absolute Neuts (auto) 7.4 H Absolute Nucleated RBC 0.000 Nucleated RBC % 0.0 Sodium 134 L Potassium 3.4 Chloride 99 Carbon Dioxide 26 Anion Gap 9 BUN 14 Creatinine 0.70 Estim Creat Clear Calc 124 Estimated GFR > 60 Glucose 123 H Calcium 8.4 Discharge Plan Discharge Patient Disposition: Home, Self-Care Discharge Instructions: See instruction sheet. Patient Instructions: Joint Replacement Surgery (DC), Shoulder Arthroscopy (GEN), Shoulder Arthroplasty (DC) Stand Alone Forms: General Discharge Instructions Discharge Medications: New oxycodone-acetaminophen 5-325 mg tablet 1 - 2 tablet PO Q6H MDD 6 tablets PRN (Reason: pain) Qty: 30 0RF Continued meloxicam 15 mg tablet 15 mg PO DAILY pravastatin 40 mg tablet 40 mg PO DAILY Patient Comments: HS hydrochlorothiazide 50 mg tablet 50 mg PO DAILY Patient Comments: QAM losartan 100 mg tablet 100 mg PO DAILY Patient Comments: QAM fluoxetine 20 mg capsule 20 mg PO DAILY terazosin 1 mg capsule 1 mg PO HS cholecalciferol (vitamin D3) 125 mcg (5,000 unit) Capsule 125 mcg PO HS acetaminophen 500 mg Capsule 1,000 mg PO Q6H PRN (Reason: Pain) ascorbic acid (vitamin C) [Vitamin C] 500 mg Capsule, Extended Release 1,000 mg PO HS nutritional supplement-fiber Liquid 1 ea PO DAILY gabapentin 300 mg capsule 300 mg PO BID Patient Comments: TAKES ONE TAB IN AM AND TWO TABLETS AT HS
== END 2024-06-17 11:10 | disposition home or self-care (01) ==
LOC: ANHSURGERY 05:43 → ANH3MEDSUR 12:04
PROVIDERS: PCP Internal Medicine; Visit Provider Orthopaedic Surgery
PROC: (CPT 23472; principal; 2024-06-16 07:30)
DX: M19.011 Primary osteoarthritis, right shoulder (principal); I10 Essential (primary) hypertension; E78.5 Hyperlipidemia, unspecified; G47.33 Obstructive sleep apnea (adult) (pediatric); F32.A Depression, unspecified; Z85.46 Personal history of malignant neoplasm of prostate; E66.9 Obesity, unspecified; Z68.33 Body mass index [BMI] 33.0-33.9, adult; Z87.891 Personal history of nicotine dependence
CPT/HCPCS: 23472; 36415; 73030; 80048; 85025; 86850; 86900; 86901; 97110; 97116; 97161; 97165; 97530; 97535; A4565; A9270; C1713; C1776; J0171; J0690; J1100; J1885; J2250; J2270; J2405; J2704; J2795; J3010; J3370; J7030; J7120; J7512

== ENCOUNTER 2024-08-05 09:10 | Outpatient (CLI) | payer MEDICARE, OTHER, SELFPAY ==
--- NOTE | ~2024-08-05 | XR_ITS ---
EXAMINATION: XR shoulder RT min 2V DATE: 08/05/2024 09:34 INDICATION: Presence of right artificial shoulder joint. TECHNIQUE: 4 views of right shoulder were obtained. COMPARISON: Right shoulder radiographs 06/16/2024 FINDINGS: There is a total right shoulder arthroplasty in near-anatomic alignment. There is a nondisp laced fracture of lesser tuberosity of proximal humerus seen only on the internal rotation view. No p eriprosthetic lucencies to suggest loosening or infection. There is mild acromioclavicular joint oste oarthritis. IMPRESSION: 1. Total right shoulder arthroplasty in near-anatomic alignment. 2. Nondisplaced fracture of lesser tuberosity of proximal humerus seen only on the internal rotation view. Reviewed, dictated and finalized at location A.
== END 2024-08-05 09:11 | disposition home or self-care (01) ==
LOC: ANHIMG 09:15
PROVIDERS: PCP Internal Medicine; Visit Provider Orthopaedic Surgery
DX: Z96.611 Presence of right artificial shoulder joint (principal); S42.26 Fracture of lesser tuberosity of humerus; X58.XXXD Exposure to other specified factors, subsequent encounter
CPT/HCPCS: 73030

== ENCOUNTER 2025-06-09 11:56 | Outpatient (CLI) | payer MEDICARE, OTHER, SELFPAY ==
--- NOTE | ~2025-06-09 | XR_ITS ---
XR shoulder RT min 2V 06/09/2025 12:17 Indication: Right shoulder arthroplasty Procedure: 4 views right shoulder Comparison: 08/05/2024 Findings: There is a right total shoulder arthroplasty. There is a nondisplaced oblique distal clavicular fracture. Surrounding osseous structures are unremarkable. Impression: 1: Oblique nondisplaced right clavicular fracture distally. Reviewed, dictated and finalized at location O. Impression: 1: Oblique nondisplaced right clavicular fracture distally.
--- OUTSIDE RECORDS SUMMARY | 2025-06-09 12:03 | XMS_ITS | Clinical Summary ---
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 Chest pains. Monitor BP occly and record. Report if BP consistently over 160/90 or under 90/60 and dizzy and LH. BP is controlled and stable. 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 Exercise regularly for CV health and weight loss. Achieve or Maintain normal BMI/Weight. Take medications as prescribed. Report if having problems with the medication or if develops Chest pains. Monitor BP occly and record. Report if BP consistently over 160/90 or under 90/60 and dizzy and LH. BP is controlled and stable. Assessment & Plan (05/09/2020 3:56 PM CDT): Continue HCTZ and losartan Assessment & Plan (11/04/2019 4:05 PM SPECIAL EDUCATION INCLUSION TEACHER): Follow low sodium DASH Diet. Exercise regularly for CV health and weight loss. Achieve or Maintain normal BMI/Weight. Take medications as prescribed. Report if having porblems with the medication or if develops Chest pains. Monitor BP occly and record. Report if BP consistently over 160/90 or under 90/60 and dizzy and LH. BP is controlled and stable. Assessment & Plan (04/14/2019 4:39 PM CDT): Follow low sodium DASH Diet. Exercise regularly for CV health and weight loss. Achieve or Maintain normal BMI/Weight. Take medications as prescribed. Report if having porblems with the medication or if develops Chest pains. Monitor BP occly and record. Report if BP consistently over 160/90 or under 90/60 and dizzy and LH. BP is controlled and stable. Resolved Problems Problem Noted Date Diagnosed Date Resolved Date Prostate cancer 03/12/2024 03/12/2024 Acute pain of left knee 02/19/202202/11 Assessment & Plan (02/19/2022 7:14 PM CDT): Worsening Apply topical voltaren gel prn otc Ok to use knee brace for support Refer to Ortho to eval and rx hoping cs injection can help Knee strengthening exercises Wt loss Asthma 09/13/2021 02/21/2023 Left shoulder pain 08/14/2021 Overview (08/14/2021): Added automatically from request for surgery [id number] Adhesive capsulitis of left shoulder 07/10/2021 02/21/2023 Assessment & Plan (07/10/2021 4:17 PM CDT): Likely sec to Rotator Cuff Tear, impingement Hx of shoulder surgery ?2004? Dr Hooper, will refer Hx of shoulder dislocation many yrs ago Inc ibuprofen to 800mg tid prn Rotator cuff syndrome of left shoulder 07/10/2021 02/19/2022 Assessment & Plan (02/19/2022 4:41 PM CDT): Improved with surgery Cont therapy and exercises Assessment & Plan (07/10/2021 4:19 PM CDT): Likely will need surgery and cortisone injections Return to ortho Ibuprofen 800mg Do some shoulder exercises printed Xray May need mri next PSA elevation 11/08/2020 08/23/2022 Overview (08/23/2022): Dr Abbasi is urologist Assessment & Plan (02/19/2022 7:13 PM CDT): Worsening, worrisome At risk for prostate CA Discussed, has no hematuria, no current lower urinary tract sx to suspect BPH Rising gradually over past 4 yrs Refer to urologist Assessment & Plan (11/08/2020 4:22 PM SPECIAL EDUCATION INCLUSION TEACHER): Trending up gradually, might be getting BPH Absent LUTS No reason to treat at this time Cont to trend PSA levels Close exposure to COVID-19 virus 04/26/2020 02/19/2022 Assessment & Plan (04/26/2020 1:50 PM CDT): With close contact and working all day in proximity of close contact we will test for Covid Patient will be made aware of results Will need copy of this Encounters Date Type Department Care Team Description 05/11/2025 Telephone [facility] [address] [place] [phone] Yoana Silverman MD 05/07/2025 Telephone [facility] [address] [place] [phone] Yoana Silverman MD 04/20/2025 Telephone [facility] [address] [place] [phone] Yoana Silverman MD Medical Question/Miscellaneou s 04/07/2025 8:00 AM CDT Office Visit [facility] [address] [place] [phone] Tayla Knowles NP Medicare annual wellness visit, subsequent (Primary Dx); Abnormal glucose; Essential hypertension; Neuropathy of both feet; Erectile dysfunction due to arterial insufficiency; Class 1 obesity due to excess calories with serious comorbidity and body mass index (BMI) of 33.0 to 33.9 in adult; Recurrent major depressive disorder, in partial remission; NABOR on CPAP; History of total shoulder replacement, left; History of prostate cancer; Tinnitus of both ears; Noise-induced hearing loss of both ears; History of back surgery; Osteoarthritis of spine with radiculopathy, lumbar region; PTSD (post-traumatic stress disorder) 04/06/2025 8:10 AM CDT Lab [facility] [address] [place] [id number] Essential hypertension; Pure hypercholesterolemia; Abnormal glucose from Last 3 Months Immunizations Immunization Administration Dates Next Due Influenza, Unspecified 08/28/2023(Deferr ed: Patient Refused),08/28/2022(Deferred: Patient Refused) Pneumococcal Conjugate PCV 13 02/19/2022 Pneumococcal Conjugate Pcv20 02/21/2023 ZOSTER Recombinant 05/09/2020,11/04/2019 Surgical History Surgery Date Site/Laterality Comments EPIDURAL INJECTION LUMBOSACRAL 12/18/2013 N/A EPIDURAL INJECTION LUMBOSACRAL 10/30/2013 N/A EPIDURAL INJECTION LUMBOSACRAL 01/14/2014 N/A ANKLE SURGERY LAMINECTOMY TOTAL SHOULDER ARTHROPLASTY 09/19/[address] Howe RADICAL PROSTATECTOMY 07/03/2022 Dr Bae TOTAL KNEE ARTHROPLASTY 02/04/[address] Sterling Sierra TOTAL SHOULDER ARTHROPLASTY 07/06/[address] Sterling Sierra Medical History Medical History Date Comments Hypertension Dyslipidemia History of lumbar laminectom y for spinal cord decompression Primary osteoarthritis Left shou lder Osteoarthritis of knee History of asthma Personal history of other me ntal and behavioral disorders Hypercholesterolemia Neuropathy of both feet Depression MRSA (methicillin resistant Staphylococcus aureus) Sleep apnea pt compliant wit h nightly CPAP machine usage Rotator cuff syndrome of left shoulder 1 Adhesive capsulitis of left shoulder 07/10/2021 History of total shoulder re placement, left 08/14/2021 Added automatically from req uest for surgery [id number] Asthma 09/13/2021 Prostate cancer (HCC) GERD (gastroesophageal reflux disease) Family History Medical History Relation Name Comments Hypertension Father Liver cancer Father Diabetes Mother Hypertension Mother Anesthesia problems Neg Hx Relation Name Status Comments Father Mother Social History Tobacco Use Types Packs/Day Years Used Date Smoking Tobacco: Former Cigarettes 0.3 3 1 1977 Smokeless Tobacco: Never Alcohol Use Standard Drinks/Week Comments Yes 0 (1 standard drink = 0.6 oz pur e alcohol) AUDIT-C Answer Date Recorded Q1: How often do you have a drink containing alc ohol? 2-4 times a month 03/12/2024 Q2: How many drinks containi ng alcohol do you have on a typical day when you are drinking? 1 or 2 03/12/2024 Q3: How often do you have si x or more drinks on one occasion? 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 Not on file Not on file Obstetrics History Last Filed Vital Signs Vital Sign Reading Time Taken Comments Blood Pressure 124/70 04/07/2025 7:56 AM CDT Pulse 68 04/07/2025 7:56 AM CDT Temperature 36.2 C (97.2 F) 04/07/2025 7:56 AM CDT Respiratory Rate 18 08/25/2024 10:4 7 AM SPECIAL EDUCATION INCLUSION TEACHER Oxygen Saturation 98% 04/07/2025 7:56 AM CDT Inhaled Oxygen Concentration - - Weight 120.9 kg (266 lb 9.6 oz) 04/07/2025 7:56 AM CDT Height 190.5 cm (6' 3) 04/07/2025 7:56 AM CDT Body Mass Index 33.32 04/07/2025 7:56 AM CDT Plan of Treatment Health Maintenance Due Date Last Done Comments Prostate Cancer Screening-PSA 11/20/2025 11/20/2023, 02/16/2022, 10/31/2020, Additional history exists Covid-19 Vaccine () 04/07/2026 10/20/2021, 12/23/2020, 11/25/2020 Postponed from 06/14/2024 (Patient declined, but will receive in the future) Depression Screening 04/07/2026 04/07/2025, 09/23/2024, 03/12/2024, Additional history exists Fall Risk Assessment 04/07/2026 04/07/2025, 03/12/2024, 02/21/2023, Additional history exists Hepatitis B Screening 04/07/2026 Postpo jameel from 1974 (Insurance / Financial) Well Visit 65+ 04/07/2026 04/07/2025, 02/13, 02/19/2022, Additional history exists Colon Cancer Screening-Colonoscopy 07/15/2028 07/15/2023, 06/30/2021 Hepatitis C Screening Completed 10/23/2017 Zoster Vaccine Completed 05/09/2020, 11/04/2019 Colon Cancer Screening-CT Colonography Discontinued 06/30/2021 Colon Cancer Screening-DNA Stool Discontinued 06/30/2021 Colon Cancer Screening-FIT Discontinued 06/30/2021 Colon Cancer Screening-Sigmoidoscopy Discontinued 06/30/2021 Pneumococcal vaccine 65+ Completed 02/21/2023, 06/2022 Abdominal Aortic Aneurysm (AAA) Screen Completed 03/13/2023 DTaP/Tdap/Td Vaccine Discontinued Influenza Vaccine Discontinued Medical Devices Implanted Type Area Mine Deputy Device Identifier Shelf Expiration Date Model / Serial / Lot [employer] 6191-1-010 Simplex P Radiopaque Full Dose Cement Bone Sterile - [id number] Implanted:Qty: 1 on 09/19/2021 by Jerome Howe MD at [facility] Other - see comments Left: Shoulder [employer] 09/12/2023 6191-1-010 / / [id number] [employer] [id number] l Advantage 56mm Reading Peg Glenoid Component Glenoid Xlpe - [id number] Implanted:Qty: 1 on 09/19/2021 by Jerome Howe MD at [facility] Other - see comments Left: Shoulder [employer] [id number] 02/10/2026 [id number] / / [id number] Screw Left: Ankle [employer] [id number] Stem Short Pc Humeral 10x44 Shoulder - [id number] Implanted:Qty: 1 on 09/19/2021 by Jerome Howe MD at [facility] Left: Shoulder [employer] [id number] 04/12/2031 [id number] / / [id number] [employer] [id number] Global Unite 10mm Shoulder 135d Body Humeral Porocoat Sterile - [id number] Implanted:Qty: 1 on 09/19/2021 by Jerome Howe MD at [facility] Left: Shoulder [employer] [id number] 02/10/2031 [id number] / / [id number] [employer] [id number] Global Unite 56mm 18mm Shoulder Eccentric Head Humeral - [id number] Implanted:Qty: 1 on 09/19/2021 by Jerome Howe MD at [facility] Left: Shoulder [employer] [id number] 10/13/2028 [id number] / / [id number] Procedures Procedure Name Priority Date/Time Associated Diagnosis Comments EGFR Routine 04/06/2025 8:27 AM CDT Essential hypertension Pure hypercholesterole tashi Abnormal glucose DIFFERENTIAL AUTO Routine 04/06/2025 8:2 7 AM CDT Essential hypertension Pure hypercholesterole tashi Abnormal glucose CBC WITH AUTO DIFFERENTIAL Routine 04/06/2025 8:27 AM CDT Essential hypertension Pure hypercholesterole tashi Abnormal glucose COMPREHENSIVE METABOLIC PANEL Routine 04/06/2025 8:27 AM CDT Essential hypertension Pure hypercholesterole tashi Abnormal glucose LIPID PANEL Routine 04/06/2025 8:27 AM CDT Essential hypertension Pure hypercholesterole tashi Abnormal glucose HEMOGLOBIN A1C Routine 04/06/2025 8:27 AM CDT Essential hypertension Pure hypercholesterole tashi Abnormal glucose URINALYSIS AND REFLEX TO MICROSCOPIC Routine 04/06/2025 8:27 AM CDT Essential hypertension Pure hypercholesterole tashi Abnormal glucose HM PSA SCREENING Routine 11/20/2023 US ABDOMINAL AORTIC ANEURYSM SCREENING Schedule Routine, Read Routine (OP Routine) 03/13/2023 10:25 AM CDT Encounter for abdominal aortic aneurysm (AAA) screening HM COLONOSCOPY Routine 06/30/2021 HEPATITIS C ANTIBODY Routine 10/23/2017 6:17 AM SPECIAL EDUCATION INCLUSION TEACHER from Last 3 Months or Most Recently Relevant to Health Maintenance Results * eGFR (04/06/2025 8:27 AM CDT) eGFR >90 >=60 mL/min/1. 73 m2 Comment: Interpretive Data Reference Interval Normal >/= 90 mL/min/1.73m2 Mildly decreased* 60 - 89 mL/min/1.73m2 Mildly to moderately decreased 45 - 59 mL/min/1.73m2 Moderately to severely decreased 30 - 44 mL/min/1.73m2 Severely decreased 15 - 29 mL/min/1.73m2 Kidney Failure < 15 mL/min/1.73m2 *Relative to young adult level Estimated glomerular filtration rate is determined by the 2020 CKD-EPI equation recommended by the National Kidney Foundation (A Unifying Approach to GFR Estimation: Recommendations of the NKF-ASK Task Force on Reassessing the Inclusion of Race in Diagnosing Kidney Disease, JASN 2020). The CKD-EPI equation should not be used for patients with unstable renal function and has not been validated in children and those over 70. Current interpretive data was last reviewed 2021. Testing performed by: [address] [address] Blood 04/06/2025 8:27 AM CDT 04/06/2025 8:29 AM CDT us Yoana Silverman MD LAB BLOOD ORDERABLES Final R esult [facility] [address] [facility] Department [place] [address] * Differential, auto (04/06/2025 8:27 AM CDT) Neutrophil abs 3.06 1.50 - 6.50 K/cumm Comment:Testing performed by : [address] [place] [address] Imm gran abs 0.03 0.00 - 0.10 K/cumm [facility] Comment:Testing performed by : [address] [address] Lymphocyte abs 1.23 0.80 - 3.30 K/cumm [facility] Comment:Testing performed by : [address] [address] Monocyte abs 0.41 0.20 - 0.80 K/cumm [facility] Comment:Testing performed by : [address] [address] Eosinophil abs 0.16 0.00 - 0.50 K/cumm [facility] Comment:Testing performed by : [address] [address] Basophil abs 0.03 0.00 - 0.10 K/cumm [facility] Comment:Testing performed by : [address] [address] Neutrophil pct 62.2 % [facility] Comment: Interpretive Data Percent cell count reference ranges are not reported, since discordance with absolute values may lead to misinterpretation of CBC data. Current Interpretive Data was last revised on 2018. Testing performed by: [address] [address] Imm gran pct 0.6 % [facility] Comment: Interpretive Data Percent cell count reference ranges are not reported, since discordance with absolute values may lead to misinterpretation of CBC data. Current Interpretive Data was last revised on 2018. Testing performed by: [address] [address] Lymphocyte pct 25.0 % [facility] Comment: Interpretive Data Percent cell count reference ranges are not reported, since discordance with absolute values may lead to misinterpretation of CBC data. Current Interpretive Data was last revised on 2018. Testing performed by: [address] [address] Monocyte pct 8.3 % [facility] Comment: Interpretive Data Percent cell count reference ranges are not reported, since discordance with absolute values may lead to misinterpretation of CBC data. Current Interpretive Data was last revised on 2018. Testing performed by: [address] [address] Eosinophil pct 3.3 % [facility] Comment: Interpretive Data Percent cell count reference ranges are not reported, since discordance with absolute values may lead to misinterpretation of CBC data. Current Interpretive Data was last revised on 2018. Testing performed by: [address] [address] Basophil pct 0.6 % JOEY Comment: Interpretive Data Percent cell count reference ranges are not reported, since discordance with absolute values may lead to misinterpretation of CBC data. Current Interpretive Data was last revised on 2018. Testing performed by: [address] [address] Blood 04/06/2025 8:27 AM CDT 04/06/2025 8:29 AM CDT us Yoana Silverman MD LAB BLOOD ORDERABLES Final R esult [facility] [address] [facility] Department [place] [address] * (ABNORMAL) Urinalysis reflex to microscopic (04/06/2025 8:27 AM CDT) Color, ur Christina Yellow Comment:Testing performed by : [address] [address] Clarity, ur Turbid(A) Clear JOEY Comment:Testing performed by : [address] [address] Specific gravity, ur 1.025 1.003 - 1.030 [facility]EY Comment:Testing performed by : [address] [address] pH, urine 6.0 JOEY Comment: Interpretive Data U rine pH is affected by diet, medications, systemic acid-base disturbances, and renal tubular function. pH may affect urinary stone formation. For example, urine pH below 6.0 may help reduce the tendency for calcium phosphate stones and pH greater than 6.0 may reduce the tendency for uric acid stone formation. Source: [facility] [employer] Current Interpretive Data was last revised on 2017 Testing performed by: [facility], [address] [place] [address]., [address] Protein, ur ql Negative Negative JOEY Comment:Testing performed by : [address], [place]., [address] Glucose, ur ql Negative Negative JOEY Comment:Testing performed by : [address], [place]., [address] Ketones, ur Negative Negative JOEY Comment:Testing performed by : [address], [place]., [address] Bilirubin, ur Negative Negative JOEY Comment:Testing performed by : [address], [place]., [address] Blood, ur Negative Negative JOEY Comment:Testing performed by : [address], [place]., [address] Urobilinogen, ur <2.0 <2.0 mg/dL JOEY Comment:Testing performed by : [address], [place]., [address] Nitrite, ur Negative Negative JOEY Comment:Testing performed by : [address] [address] Leukocyte esterase, ur Negative Negative JOEY Comment:Testing performed by : [address] [address] UA reflex comment Reflex conditions for microscopic UA not met. JOEY Comment:Testing performed by : [address] [address] Urine 04/06/2025 8:27 AM CDT 04/06/2025 1:05 PM CDT Narrative JOEY - 04/06/2025 1:19 PM CDT Urine Collection Method->Clean Catch us Yoana Silverman MD LAB URINE ORDERABLES Final R esult JOEY LUTZ [address] [facility] Department [place] [address] * (ABNORMAL) CBC with auto differential (04/06/2025 8:27 AM CDT) [facility] WBC 4.92 3.80 - 9.90 K/cumm Comment:Testing performed by : [address] [address] Hgb 14.0 13.0 - 17.5 g/dL JOEY Comment:Testing performed by : [address] [address] Hct 38.4(L) 38.9 - 50.3 % JOEY Comment:Testing performed by : [address], [address] Plt 150 150 - 400 K/cumm [facility] Comment:Testing performed by : [address] [address] MPV 9.0(L) 9.1 - 12.3 fL JOEY Comment:Testing performed by : [address], [address] RBC 4.47 4.30 - 5.80 M/cumm [facility] Comment:Testing performed by : [address] [address] MCV 85.9 81.3 - 96.4 fL JOEY Comment:Testing performed by : [address], [address] MCH 31.3 27.1 - 33.3 pg JOEY Comment:Testing performed by : [address], [address] MCHC 36.5(H) 32.3 - 35.7 g/dL JOEY Comment:Testing performed by : [address], [address] RDW CV 12.8 11.1 - 14.9 % JOEY Comment:Testing performed by : [address], [address] RDW SD 39.8 35.7 - 48.1 fL JOEY Comment:Testing performed by : [address], [address] NRBC abs 0.00 0.00 - 0.01 K/cumm [facility] Comment:Testing performed by : [address] [address] Blood 04/06/2025 8:27 AM CDT 04/06/2025 8:29 AM CDT Yoana Silverman MD LAB BLOOD ORDERABLES Final R ult Performing Organization Address [facility] de Phone Number KELLEY[address] [place] [address] * Hemoglobin A1c (04/06/2025 8:27 AM CDT) Hgb A1C 5.1 4.0 - 5.6 % Comment:Testing performed by : [address] [address] Estimated Average Glucose 100 mg/dL JOEY Comment: The ADA recommends reporting an estimated Average Glucose (eAG) with all Hemoglobin A1c results using the equation derived from a study of 507 normal and diabetic adults. Minority populations were underrepresented and children were not included. (Diabetes Care 31:2312-6541, 2008). The eAG is not equivalent to a fasting glucose. Testing performed by: [facility], [address] [place] [address]., [address] Blood 04/06/2025 8:27 AM CDT 04/06/2025 8:29 AM CDT Yoana Silverman MD LAB BLOOD ORDERABLES Final R esult Performing Organization Address [facility] Co de Phone Number [facility] [address] [facility] [place] [address] * Lipid panel (04/06/2025 8:27 AM CDT) Cholesterol 141 30 - 199 mg/dL Comment: Interpretive Data Ages < or = 19 years Acceptable: <170 mg/dL Borderline high: 170-199 mg/dL High: >or= 200 mg/dL Ages > or = 20 years Desirable: <200 mg/dL Borderline high: 200-239 mg/dL High: >or= 240 mg/dL Literature References: 1. Expert Panel on Integrated Guidelines for Cardiovascular Health and Risk Reduction in Children and Adolescents. Pediatrics 2011;128:S213 2. NCEP Expert Panel. Circulation 2004;110:227 Current Interpretive Data was last revised on 2018. Testing performed by: [address] [address] Triglycerides 142 <=149 mg/dL JOEY Comment: Interpretive Data Ages < or = 9 years Acceptable: <75 mg/dL Borderline high: 75-99 mg/dL High: >or= 100 mg/dL Ages 10 to 20 years Acceptable: <90 mg/dL Borderline high: 90-129 mg/dL High: >or= 130 mg/dL Ages > or = 20 years Desirable: <150 mg/dL Borderline high: 150-199 mg/dL High: 200-499 mg/dL Very high: >or= 499 mg/dL Literature References: 1. Expert Panel on Integrated Guidelines for Cardiovascular Health and Risk Reduction in Children and Adolescents. Pediatrics 2011;128:S213 2. NCEP Expert Panel. Circulation 2004;110:227 Current Interpretive Data was last revised on 2018. Testing performed by: [address] [address] HDL 41 >=40 mg/dL JOEY Comment: Interpretive Data Ages < or = 19 years Acceptable: >45 mg/dL Borderline low: 40-45 mg/dL Low: <40 mg/dL Ages > or = 20 years Desirable: >or= 60 mg/dL Low: <40 mg/dL Literature References: 1. Expert Panel on Integrated Guidelines for Cardiovascular Health and Risk Reduction in Children and Adolescents. Pediatrics 2011;128:S213 2. NCEP Expert Panel. Circulation 2004;110:227 Current Interpretive Data was last revised on 2018. Testing performed by: [address] [address] LDL, calculated 75 <=129 mg/dL JOEY Comment: Interpretive Data Ages < or = 19 years Acceptable: <110 mg/dL Borderline high: 110-129 mg/dL High: >or= 130 mg/dL Ages > or = 20 years Optimal: <100 mg/dL Near optimal: 100-129 mg/dL Borderline high: 130-159 mg/dL High: >160 mg/dL Calculated using the [place] LDL-C estimating equation. This equation was implemented on 2024. Prior to this date LDL-C was estimated using the Friedewald equation. Literature References: 1. Expert Panel on Integrated Guidelines for Cardiovascular Health and Risk Reduction in Children and Adolescents. Pediatrics 2011;128:S213 2. NCEP Expert Panel. Circulation 2004;110:227 3. [place] Fraga et al. TONI Cardiol. 2020 February 11;5(5):540-548. doi: 10.1001/jamacardio.2020.0013 Current Interpretive Data was last revised on 2024. Testing performed by: [address] [address] Non-HDL Cholesterol 100 mg/dL JOEY LUTZ Comment: Interpretive Data Ages < or = 19 years Acceptable: <120 mg/dL Borderline high: 120-144 mg/dL High: >145 mg/dL Ages > or = 20 years When triglycerides are >200 mg/dL, Non-HDL cholesterol is a secondary target of therapy with treatment goals that are 30 mg/dL greater than the LDL cholesterol target. Literature References: 1. Expert Panel on Integrated Guidelines for Cardiovascular Health and Risk Reduction in Children and Adolescents. Pediatrics 2011;128:S213 2. NCEP Expert Panel. Circulation 2004;110:227 Current Interpretive Data was last revised on 2018. Testing performed by: [address] [address] Chol/HDL ratio 3 JOEY LUTZ Comment:Testing performed by : [address] [address] Blood 04/06/2025 8:27 AM CDT 04/06/2025 8:29 AM CDT us Yoana Silverman MD LAB BLOOD ORDERABLES Final R esult JOEY LUTZ [address] [facility] Department [place] [address] * (ABNORMAL) Comprehensive metabolic panel (04/06/2025 8:27 AM CDT) Sodium 140 135 - 145 mmol/L Comment:Testing performed by : [address], [place]., [address] Potassium, pl 3.5 3.3 - 4.9 mmol/L JOEY Comment:Testing performed by : [address], [place]., [address] Chloride 102 97 - 110 mmol/L JOEY Comment:Testing performed by : [address], [place]., [address] CO2 25 22 - 32 mmol/L JOEY Comment:Testing performed by : [address], [place]., [address] Anion gap 13 2 - 15 mmol/L JOEY Comment:Testing performed by : [address], [place]., [address] BUN 17 6 - 25 mg/dL JOEY Comment:Testing performed by : [address], [place]., [address] Creatinine 0.80 0.80 - 1.30 mg/dL JOEY Comment:Testing performed by : [address], [place]., [address] Glucose 108 70 - 199 mg/dL [facility] Comment: Interpretive Data Fasting glucose >/= 126 mg/dl is diagnostic for diabetes. Fasting is defined as no caloric intake for at least 8 hours. Fasting glucose between 100 mg/dl to 125 mg/dl is diagnostic of prediabetes. In a patient with classic symptoms of hyperglycemia or hyperglycemic crisis, a random glucose >/= 200 mg/dl is diagnostic for diabetes. In the absence of unequivocal hyperglycemia, results should be confirmed by repeat testing. The classification and Diagnosis of Diabetes Diabetes Care 202; 46: S19-S40. Current interpretive data was last revised 2022. Testing performed by: [address] [address] Calcium 8.9 8.5 - 10.3 mg/dL JOEY Comment:Testing performed by : [address], [place]., [address] Bilirubin, total 1.4(H) 0.1 - 1.2 mg/dL JOEY Comment:Testing performed by : [address] [address] Protein, pl 6.9 6.5 - 8.5 g/dL JOEY Comment:Testing performed by : [address] [address] Albumin 4.7 3.5 - 5.0 g/dL JOEY Comment:Testing performed by : [address] [address] Alk phos 86 40 - 130 Units/L JOEY Comment:Testing performed by : [address] [address] ALT 22 7 - 55 Units/L JOEY Comment:Testing performed by : [address] [address] AST 22 10 - 50 Units/L JOEY Comment:Testing performed by : [address] [address] Blood 04/06/2025 8:27 AM CDT 04/06/2025 8:29 AM CDT Yoana Silverman MD LAB BLOOD ORDERABLES Final R esult JOEY LUTZ [address] [facility] Department [place] [address] * PSA SCREENING (11/20/2023) SCRIBED PSA, Total <0.1 Historical Provider HEALTH MAINTENANCE Final Result * US Abdominal Aortic Aneurysm Screening (03/13/2023 10:25 AM CDT) Anatomical Region Laterality Modality Abdomen Ultrasound 03/13/2023 4:46 PM CDT Narrative 03/13/2023 4:49 PM CDT EXAM DESCRIPTION: US ABDOMINAL AORTIC ANEURYSM SCREENING REASON FOR STUDY: screening TECHNIQUE: Grayscale images acquired of the aorta and stored on PACS. Selected color Doppler and spectral images recorded. COMPARISON: None FINDINGS: AORTIC CALIBER MAXIMAL PROXIMAL: 2.7 cm. MID: 2.6 cm. DISTAL: 2.3 cm. ILIAC DIAMETER RIGHT: 1.4 cm. LEFT: 1.5 cm. OTHER: No other significant finding. IMPRESSION: No abdominal aortic aneurysm. The abdominal aorta measures up to 2.7 cm proximally. Follow-up ultrasound in 10 years is recommended. REFERENCE: Please see below follow up recommendations for abdominal aortic aneurysm surveillance per Society for Vascular Surgery Guidelines: < 2.5 cm No follow up necessary 2.52.9 cm Recommended ultrasound follow up every 10 years 3.0-3.9 cm Recommended ultrasound follow up every 3 years 4.0-4.9 cm Recommended ultrasound follow up every 12 months, vascular surgery consult 5.0-5.4 cm Recommended ultrasound follow up every 6 months, vascular surgery consult >= 5.5 cm Referral to vascular surgeon Based upon Society for Vascular Surgery Guidelines: J Vasc Surgery 2008 50: s2s49; updated Oct 2017 J Vasc Surgery 67:277 THIS IS AN ELECTRONICALLY VERIFIED FINAL REPORT 03/13/2023 4:49 PM - Electronically signed by Quang Ramirez M.D. KR: KR Report ID: [id number] Reading Location: [place] [address] Procedure Note Quang Ramirez MD - 03/13/2023 EXAM DESCRIPTION: US ABDOMINAL AORTIC ANEURYSM SCREENING REASON FOR STUDY: screening TECHNIQUE: Grayscale images acquired of the aorta and stored on PACS.Selected color Doppler and spectral images recorded. COMPARISON: None FINDINGS: AORTIC CALIBER MAXIMAL PROXIMAL: 2.7 cm. MID: 2.6 cm. DISTAL: 2.3 cm. ILIAC DIAMETER RIGHT: 1.4 cm. LEFT: 1.5 cm. OTHER: No other significant finding. IMPRESSION: No abdominal aortic aneurysm. The abdominal aorta measuresup to 2.7 cm proximally. Follow-up ultrasound in 10 years is recommended. REFERENCE: Please see below follow up recommendations for abdominal aortic aneurysm surveillance per Society for Vascular Surgery Guidelines: < 2.5 cm No follow up necessary 2.52.9 cm Recommended ultrasound follow up every 10 years 3.0-3.9 cm Recommended ultrasound follow up every 3 years 4.0-4.9 cm Recommended ultrasound follow up every 12 months, vascularsurgery consult 5.0-5.4 cm Recommended ultrasound follow up every 6 months, vascularsurgery consult >= 5.5 cm Referral to vascular surgeon Based upon Society for Vascular Surgery Guidelines: J Vasc Surgery 2009Oct 50: s2s49; updated Oct 2017 J Vasc Surgery 67:277 THIS IS AN ELECTRONICALLY VERIFIED FINAL REPORT 03/13/2023 4:49 PM - Electronically signed by Quang Ramirez M.D. KR: CHIP Report ID: [id number] Reading Location: [id number] Yoana Silverman MD IMG US PROCEDURES Final Resu lt * (ABNORMAL) COLONOSCOPY (06/30/2021) Scribed Colonoscopy Abnormal Historical Provider HEALTH MAINTENANCE Final Result * Hepatitis C antibody (10/23/2017 6:17 AM SPECIAL EDUCATION INCLUSION TEACHER) Hep C Ab NONREACT NONREACTIVE 10/23/2017 8:18 AM SPECIAL EDUCATION INCLUSION TEACHER [facility] HISTORICAL RESULTS Comment: Siemens SoundtrackeraurXP using CONTRERAS (chemiluminescent immunoassay) technology. NONREACTIVE: Antibodies to Hepatitis C not detected. This does not exclude early acute Hepatitis C infection, possibility of exposure to Hepatitis C, antibodies below detection limit, or to lack of antibody reactivity to the antigen used in this assay. EQUIVOCAL: Antibodies to Hepatitis C may or may not be present. Sample to be confirmed by real-time PCR method. REACTIVE: Antibodies to Hepatitis C detected. 10/23/2017 6:17 AM SPECIAL EDUCATION INCLUSION TEACHER 10/23/2017 7:03 AM SPECIAL EDUCATION INCLUSION TEACHER Narrative [facility] HISTORICAL RESULTS - 10/23/2017 8:18 AM SPECIAL EDUCATION INCLUSION TEACHER FASTING 12 HRS Yoana Silverman MD LAB MICROBIOLOGY - GENERAL O RDERABLES Final Result [facility] HISTORICAL RESULTS from Last 3 Months or Most Recently Relevant to Health Maintenance Insurance MEDICARE [employer] MEDIC[place] [employer] [id number] Advance Directives For more information, please contact: [phone] * Full Code (Latest Code Status on File) Date Activated Date Inactivated Comments 09/19/2021 11:07 AM 09/20/2021 6:23 PM Care Teams Box Stamper Relationship Specialty Start Date End Date Yoana Silverman MD [address] [place] [id number] PCP - General Internal Medicine 11/08/20 Jaron Abbasi MD [address] [address] Consulting Physician Urology 08/23/22 Oscar Shaffer MD [address] [place] [address] Consulting Physician Sleep Medicine 08/23/22 Franck Anne DPM [facility] [facility] [facility] [address] [place], [place] [id number] Consulting Physician Podiatry 08/23/22 Berry Jane MD [address] [place] [address] Referring Physician Gastroenterology 08/23/22 Sterling Sierra MD [address] [place] [id number] Referring Physician Orthopedic Surgery 02/21/23
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
--- OUTSIDE RECORDS SUMMARY | 2025-06-09 12:03 | XMS_ITS | Clinical Summary ---
Author Organization [facility] Address [address] [place] [address] Care Team Providers Care Waxer Tender Name Role Phone Yoana Silverman MD Primary Care Provider Allergies No known active allergies Medications aspirin EC 81 MG tablet 81 mg daily. Active fluoxetine 20 MG capsule TAKE 1 CAPSULE(20 MG) BY MOUTH DAILY 12/01/2019 Active losartan 100 MG tablet Take 100 mg by mouth daily. 04/14/2019 Active Multiple Vitamin tablet Active pravastatin 40 MG tablet Take 40 mg by mouth daily. 04/14/2019 Active hydroCHLOROthiaz festus (HYDRODIURIL) 50 MG tablet 12/13/2022 Active gabapentin (NEURONTIN) 300 MG capsule 12/16/2022 Active Active Problems No known active problems Family History Medical History Relation Comments Heart Disease Father liver cancer Father Heart Disease Mother Relation Status Comments Father Mother Social History Tobacco Use Types Packs/Day Years Used Date Smoking Tobacco: Former Cigarettes Q uit: 1988 Smokeless Tobacco: Never Sex and Gender Information Value Date Recorded Sex Assigned at Not on file Legal Sex Male 7:59 PM CDT Gender Identity Not on file Sexual Orientation Not on file Last Filed Vital Signs Vital Sign Reading Time Taken Comments Blood Pressure 136/78 12/16/2019 1:03 PM BANDAGE WRAPPING MACHINE OPERATOR Pulse 76 12/16/2019 1:03 PM BANDAGE WRAPPING MACHINE OPERATOR Temperature 36.8 C (98.3 F) 12/16/2019 1:03 PM BANDAGE WRAPPING MACHINE OPERATOR Respiratory Rate 16 12/16/2019 1:03 PM BANDAGE WRAPPING MACHINE OPERATOR Oxygen Saturation 98% 12/16/2019 1:03 PM BANDAGE WRAPPING MACHINE OPERATOR Inhaled Oxygen Concentration - - Weight 127.5 kg (281 lb) 12/16/2019 1:03 PM BANDAGE WRAPPING MACHINE OPERATOR Height 190.5 cm (6' 3) 12/16/2019 1:03 PM BANDAGE WRAPPING MACHINE OPERATOR Body Mass Index 35.12 12/16/2019 1:03 PM BANDAGE WRAPPING MACHINE OPERATOR Plan of Treatment Health Maintenance Due Date Last Done Comments Colorectal Cancer Screening Colonoscopy (10 Years) 1956 Hepatitis C 1974 DTaP, Tdap and Td Vaccines ( 1 - Tdap) 1975 Pneumococcal Vaccine: 50+ Ye ars (1 of 1 - PCV) 2006 Zoster Vaccines (2 of 2) 12/30/2019 11/04/2019 Annual Medicare Wellness Visit 2021 COVID-19 Vaccine (1 - 2023-2 5 season) 2024 RSV Immunization or 60+ Years (1 - 1-dose 75+ series) 2031 Meningococcal B Vaccine Aged Out No l onger eligible based on patient's age to complete this topic Meningococcal Vaccine Aged Out No anton jess eligible based on patient's age to complete this topic RSV Immunizations Under 20 Months Aged Out No longer eligible based on patient's age to complete this topic Additional Health Concerns Infection Onset Date 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
--- OUTSIDE RECORDS SUMMARY | 2025-06-09 12:04 | XMS_ITS | Encounter Summary ---
Author Organization [facility] Address [address] [place] [address] Care Team Providers Care Equipment Operator/Laborer/Supervisor Name Role Phone China Hallman MD, Hudson A. Unavailable + [phone] Yoana Silverman MD Primary Care Provider [phone] Jaron Abbasi MD Unavailable [phone] Oscar Shaffer MD Unavailable [phone] Franck Anne DPM Unavailable [phone] Berry Jane MD Unavailable + Sterling Sierra MD Unavailable [phone] Encounter Details Date Type Department Care Team (Late st Contact Info) Description 05/27/2024 Orders Only [facility] [address] [place] [address] Scanning, Provider Social History Tobacco Use Types Packs/Day Years Used Date Smoking Tobacco: Former Cigarettes 0.3 3 1 975 - 1977 Smokeless Tobacco: Never Alcohol Use Standard [...] points, staff should administer the PHQ-9) 0 03/12/2024 Sex and Gender Information Value Date Recorded Sex Assigned at Not on file Legal Sex Male 6:47 AM LABELING SPECIALIST Gender Identity Male 08/02/2021 10:36 AM CDT Sexual Orientation Straight 08/02/2021 10 :36 AM CDT 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 Not on file Not on file documented as of this encounter Plan of Treatment Not on file documented as of this encounter Procedures Procedure Name Priority Date/Time Associated Diagnosis Comments SCAN - LABS 05/27/2024 documented in this encounter Results * SCAN - LABS (05/27/2024) us Provider Scanning Final Result documented in this encounter Visit Diagnoses Not on filedocumented in this encounter Care Teams Equipment Operator/Laborer/Supervisor Relationship Specialty Start Date End Date Yoana Silverman MD [facility] [id number] PCP - General Internal Medicine 11/08/20 Parker Atkinson Jr., MD [address] [place] [address] Referring Physician Ophthalmology 11/04/19 09/22/24 Jaron Abbasi MD [address] [id number] Consulting Physician Urology 08/23/22 Oscar Shaffer MD [address] [place] [address] Consulting Physician Sleep Medicine 08/23/22 Franck AnneJEAN MARIE [address] [place] [address] Consulting Physician Podiatry 08/23/22 Berry Jane MD [address] [place] [address] Referring Physician Gastroenterology 08/23/22 Sterling Sierra MD [address] [place] [address] Referring Physician Orthopedic Surgery 02/21/23 documented as of this encounter
--- OUTSIDE RECORDS SUMMARY | 2025-06-09 12:04 | XMS_ITS | Encounter Summary ---
Author Organization [facility] Facility Care Team Providers Care Remelt Sugar Boiler Name Role Phone Yaona Silverman MD Primary Care Provider + [phone] China Hallman MD, [place] A. Unavailable + [phone] Brien Hallman MD, Enrique Sin Primary Care Provide r Yoana Silverman MD Primary Care Provider + [phone] Vero Diallo MD Unavailable + [phone] Jaron Abbasi MD Unavailable +[phone] Oscar Shaffer MD Unavailable [phone] Cristobal Gan MD Unavailable + [phone] Franck Anne DPPhilly Unavailable +[phone] Berry Jane MD Unavailable + Sterling Sierra MD Unavailable [phone] Encounter Details Date Type Department Care Team (Latest Contact Info) Description 03/08/2016 Orders Only [facility] CLINCONV ProviderLita MD [address] [place] [id number] Social History Tobacco Use Types Packs/Day Years Used Date Smoking Tobacco: Never Assessed Sex and Gender Information Value Date Recorded Sex Assigned at Not on file Legal Sex Male 6:47 AM DIRECTOR OF BLOOD Gender Identity Male 08/02/2021 10:36 AM CDT Sexual Orientation Straight 08/02/2021 10 :36 AM CDT documented as of this encounter Plan of Treatment Not on file documented as of this encounter Procedures Procedure Name Priority Date/Time Associated Diagnosis Comments COLONOSCOPY - SCAN 03/08/2016 12 :00 AM CDT SCAN - LABS 03/08/2016 12:00 AM CDT SCAN - LABS 03/08/2016 12:00 AM CDT documented in this encounter Results * COLONOSCOPY - SCAN (03/08/2016 12:00 AM CDT) Narrative 03/08/2016 12:00 AM CDT Ordered by an unspecified provider. Historical Provider Final Res ult * SCAN - LABS (03/08/2016 12:00 AM CDT) Narrative 03/08/2016 12:00 AM CDT Ordered by an unspecified provider. Historical Provider Final Res ult * SCAN - LABS (03/08/2016 12:00 AM CDT) Narrative 03/08/2016 12:00 AM CDT Ordered by an unspecified provider. Historical Provider Final Res ult documented in this encounter Visit Diagnoses Not on filedocumented in this encounter Additional Health Concerns Infection Onset Date Last Indicated Resolved Time COVID: Suspected 04/26/2020 04/26/2020 04/28/2020 6:26 PM CDT Respiratory Infection (YANCI), contact + droplet Comment:Automatically added due to negative COVID-19 result. 04/28/2020 04/28/2020 05/12/2020 3:0 7 AM CDT Exposure, COVID-19 Comment:Added automatically based on COVID19 lab answers indicating exposure risk 10/27/2021 10/27/2021 10/27/2021 6:[address] COVID: Suspected 10/27/2021 10/27/2021 10/27/2021 6:09 PM DIRECTOR OF BLOOD COVID19 10/27/2021 10/27/2021 11/06/2021 3:05 AM DIRECTOR OF BLOOD COVID: Recovered Comment:Added based on recent COVID infection. 11/06/2021 11/13/2021 03/06/2022 3:07 AM C DT documented as of this encounter Care Teams Remelt Sugar Boiler Relationship Specialty Start Date End Date Yoana Silverman MD [address] [place] [id number] PCP - General Internal Medicine 02/10/19 10/30/20 Enrique Tesfaye Jr., MD [address] [place] [address] [phone] PCP - General 10/31/20 11/07/20 Yoana Silverman MD [address] [place] [address] [id number] PCP - General Internal Medicine 11/08/20 Parker Atkinson Jr., MD [address] [place] [address] Referring Physician Ophthalmology 11/04/19 09/22/24 Vero Diallo MD [address] [address] Referring Physician Pulmonary Disease 02/19/22 08/22/22 Jaron Abbasi MD [address] [address] Consulting Physician Urology 08/23/22 Oscar Shaffer MD [address] [place] [address] [phone] Consulting Physician Sleep Medicine 08/23/22 Cristobal Gan MD [address] [facility] [place] [place] [address] Consulting Physician Orthopedic Surgery 08/23/22 Franck Anne, DPM [address] [place] [address] [place] [address] Consulting Physician Podiatry 08/23/22 Berry Jane MD [address] [facility] [address] [place] [address] Referring Physician Gastroenterology 08/23/22 Sterling Sierra MD [address] [facility] [address] [place] [address] Referring Physician Orthopedic Surgery 02/21/23 documented as of this encounter
--- OUTSIDE RECORDS SUMMARY | 2025-06-09 12:04 | XMS_ITS | Encounter Summary ---
Author Organization [facility] Facility Care Team Providers Care Kitchen Steward/Stewardess Name Role Phone Yoana Silverman MD Primary Care Provider + [phone] China Hallman MD, [place] A. Unavailable + [phone] Brien Hallman MD, Enrique Sin Primary Care Provide r Yoana Silverman MD Primary Care Provider + [phone] Vero Diallo MD Unavailable + [phone] Jaron Abbasi MD Unavailable [phone] Oscar Shaffer MD Unavailable [phone] Cristobal Gan MD Unavailable + [phone] Franck Anne DPPhilly Unavailable +[phone] Berry Jane MD Unavailable + Sterling Sierra MD Unavailable [phone] Encounter Details Date Type Department Care Team (Latest Contact Info) Description 08/24/2016 Orders Only [facility] CLINCONV ProviderLita MD [address] [place] [phone] Social History Tobacco Use Types Packs/Day Years Used Date Smoking Tobacco: Never Assessed Sex and Gender Information Value Date Recorded Sex Assigned at Not on file Legal Sex Male 6:47 AM KENO WRITER / RUNNER Gender Identity Male 08/02/2021 10:36 AM CDT Sexual Orientation Straight 08/02/2021 10 :36 AM CDT documented as of this encounter Plan of Treatment Not on file documented as of this encounter Procedures Procedure Name Priority Date/Time Associated Diagnosis Comments SCAN - LABS 09/05/2016 12:00 AM KENO WRITER / RUNNER documented in this encounter Results * SCAN - LABS (09/05/2016 12:00 AM KENO WRITER / RUNNER) Narrative 09/05/2016 12:00 AM KENO WRITER / RUNNER Ordered by an unspecified provider. us Historical Provider Final Res ult documented in [...] COVID: Suspected 10/27/2021 10/27/2021 10/27/2021 6:09 PM KENO WRITER / RUNNER COVID19 10/27/2021 10/27/2021 11/06/2021 3:05 AM KENO WRITER / RUNNER COVID: Recovered Comment:Added based on recent COVID infection. 11/06/2021 11/13/2021 03/06/2022 3:07 AM C DT documented as of this encounter Care Teams Kitchen Steward/Stewardess Relationship Specialty Start Date End Date Yoana Silverman MD [address] [place] [address] [phone] PCP - General Internal Medicine 02/10/19 10/30/20 Enrique Tesfaye Jr., MD [address] [place] [address] [phone] PCP - General 10/31/20 11/07/20 Yoana Silverman MD [address] [place] [address] [phone] PCP - General Internal Medicine 11/08/20 Parker Atkinson Jr., MD [address] [place] [address] Referring Physician Ophthalmology 11/04/19 09/22/24 Vero Diallo MD [address] [address] Referring Physician Pulmonary Disease 02/19/22 08/22/22 Jaron Abbasi MD [address] [place] [address] [phone] Consulting Physician Urology 08/23/22 Oscar Shaffer MD [address] [place] [address] Consulting Physician Sleep Medicine 08/23/22 Cristobal Gan MD [address] [facility] [address] Consulting Physician Orthopedic Surgery 08/23/22 Franck Anne, JEAN MARIE [address] [facility] [place] [address] Consulting Physician Podiatry 08/23/22 Berry Jane MD [address] [place] [address] [address] [place] [address] Referring Physician Gastroenterology 08/23/22 Sterling Sierra MD [address] [place] [address] [place] [address] Referring Physician Orthopedic Surgery 02/21/23 documented as of this encounter
--- OUTSIDE RECORDS SUMMARY | 2025-06-09 12:04 | XMS_ITS | Encounter Summary ---
Author Organization [facility] Facility Care Team Providers Care Senior Sales Representative Name Role Phone Yoana Silverman MD Primary Care Provider + [phone] China Hallman MD, Stanley A. Unavailable + [phone] Brien Hallman MD, Enrique Sin Primary Care Provide r Yoana Silverman MD Primary Care Provider + [phone] Vero Diallo MD Unavailable + [phone] Jaron Abbasi MD Unavailable [phone] Oscar Shaffer MD Unavailable [phone] Cristobal Gan MD Unavailable + [phone] Franck Anne DPPhilly Unavailable +[phone] Berry Jane MD Unavailable + Sterling Sierra MD Unavailable [phone] Encounter Details Date Type Department Care Team (Latest Contact Info) Description 04/22/2017 Orders Only [facility] CLINCONV ProviderLita MD [address] [place] [address] Social History Tobacco Use Types Packs/Day Years Used Date Smoking Tobacco: Never Assessed Sex and Gender Information Value Date Recorded Sex Assigned at Not on file Legal Sex Male 6:47 AM MATTRESS RENOVATOR Gender Identity Male 08/02/2021 10:36 AM CDT Sexual Orientation Straight 08/02/2021 10 :36 AM CDT documented as of this encounter Plan of Treatment Not on file documented as of this encounter Procedures Procedure Name Priority Date/Time Associated Diagnosis Comments SCAN - LABS 04/25/2017 12:00 AM CDT documented in this encounter Results * SCAN - LABS (04/25/2017 12:00 AM CDT) Narrative 04/25/2017 12:00 AM CDT Ordered by an unspecified provider. us Historical [...] COVID: Suspected 10/27/2021 10/27/2021 10/27/2021 6:09 PM MATTRESS RENOVATOR COVID19 10/27/2021 10/27/2021 11/06/2021 3:05 AM MATTRESS RENOVATOR COVID: Recovered Comment:Added based on recent COVID infection. 11/06/2021 11/13/2021 03/06/2022 3:07 AM C DT documented as of this encounter Care Teams Senior Sales Representative Relationship Specialty Start Date End Date Yoana Silverman MD [address] [place] [address] [phone] PCP - General Internal Medicine 02/10/19 10/30/20 Enrique Tesfaye Jr., MD [address] [place] [address] [phone] PCP - General 10/31/20 11/07/20 Yoana Silverman MD [address] [place] [address] [phone] PCP - General Internal Medicine 11/08/20 Parker Atkinson Jr., MD [address] [place] [address] Referring Physician Ophthalmology 11/04/19 09/22/24 Vero Diallo MD [address] [address] Referring Physician Pulmonary Disease 02/19/22 08/22/22 Jaron Abbasi MD [address] [place] [address] [phone] Consulting Physician Urology 08/23/22 Oscar Shaffer MD [address] [place] [address] Consulting Physician Sleep Medicine 08/23/22 Cristobal Gan MD [address] [facility] [place] [address] Consulting Physician Orthopedic Surgery 08/23/22 Franck Anne, JEAN MARIE [address] [facility] [place] [address] Consulting Physician Podiatry 08/23/22 Berry Jane MD [address] [place] [address] [place] [address] Referring Physician Gastroenterology 08/23/22 Sterling Sierra MD [address] [place] [address] [place] [address] Referring Physician Orthopedic Surgery 02/21/23 documented as of this encounter
== END 2025-06-09 11:57 | disposition home or self-care (01) ==
PROVIDERS: PCP Internal Medicine; Visit Provider Orthopaedic Surgery
DX: Z96.611 Presence of right artificial shoulder joint (principal); S42.034D Nondisplaced fracture of lateral end of right clavicle, subsequent encounter for fracture with routine healing; X58.XXXD Exposure to other specified factors, subsequent encounter
CPT/HCPCS: 73030

== ENCOUNTER 2025-09-15 15:50 | Outpatient (CLI) | payer MEDICARE, OTHER, SELFPAY ==
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
--- OUTSIDE RECORDS SUMMARY | 2025-09-15 16:57 | XMS_ITS | Clinical Summary ---
Author Organization [facility] Address [address] [place] [address] Care Team Providers Care Dependency Case Manager Name Role Phone Yoana Silverman MD Primary Care Provider [phone] Allergies No known active allergies Medications aspirin [...] Comments Blood Pressure 136/78 12/16/2019 1:03 PM ARTIFICIAL FLY TIER Pulse 76 12/16/2019 1:03 PM ARTIFICIAL FLY TIER Temperature 36.8 C (98.3 F) 12/16/2019 1:03 PM ARTIFICIAL FLY TIER Respiratory Rate 16 12/16/2019 1:03 PM ARTIFICIAL FLY TIER Oxygen Saturation 98% 12/16/2019 1:03 PM ARTIFICIAL FLY TIER Inhaled Oxygen Concentration - - Weight 127.5 kg (281 lb) 12/16/2019 1:03 PM ARTIFICIAL FLY TIER Height 190.5 cm (6' 3) 12/16/2019 1:03 PM ARTIFICIAL FLY TIER Body Mass Index 35.12 12/16/2019 1:03 PM ARTIFICIAL FLY TIER Plan of Treatment Health Maintenance Due Date Last Done Comments Colorectal Cancer Screening Colonoscopy (10 Years) 1955 Hepatitis C 1973 DTaP, Tdap and Td Vaccines ( 1 - Tdap) 1975 Pneumococcal Vaccine: 50+ Ye ars (1 of 1 - PCV) 2006 Zoster Vaccines (2 of 2) 12/30/2019 11/04/2019 Annual Medicare Wellness Visit 2021 COVID-19 Vaccine (1 - 2024-2 6 season) 2025 Influenza Adult (#1) 2025 RSV Immunization or 60+ Years (1 - 1-dose 75+ series) 2031 Hepatitis A Vaccines Aged Out No long er eligible based on patient's age to complete this topic Meningococcal B Vaccine Aged Out No l onger eligible based on patient's age to complete this topic Meningococcal Vaccine Aged Out No anton jess eligible based on patient's age to complete this topic RSV Immunizations Under 20 Months Aged Out No longer eligible based on patient's age to complete this topic Additional Health Concerns Infection Onset Date Last 

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
--- OUTSIDE RECORDS SUMMARY | 2025-09-15 16:58 | XMS_ITS | Encounter Summary ---
Author Organization [facility] Facility Care Team Providers Care Outside Property Agent Name Role Phone Yoana Silverman MD Primary Care Provider + [phone] China Hallman MD, Champlain A. Unavailable + [phone] Brien Hallman MD, Enrique Sin Primary Care Provide r Yoana Silverman MD Primary Care Provider + [phone] Vero Diallo MD Unavailable + [phone] Jaron Abbasi MD Unavailable [phone] Oscar Shaffer MD Unavailable [phone] Cristobal Gan MD Unavailable + [phone] Franck Anne DPPhilly Unavailable [phone] Berry Jane MD Unavailable + Sterling Sierra MD Unavailable [phone] Encounter Details Date Type Department Care Team (Latest Contact Info) Description 08/24/2016 Orders Only [facility] ProviderLita MD [address] [place] [id number] Social History Tobacco Use Types Packs/Day Years Used Date Smoking Tobacco: Never Assessed Sex and Gender Information Value Date Recorded Sex Assigned at Not on file Legal Sex Male 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 us Historical [...] COVID: Suspected 10/27/2021 10/27/2021 10/27/2021 6:09 PM FISHING ACCESSORIES MAKER COVID19 10/27/2021 10/27/2021 11/06/2021 3:05 AM FISHING ACCESSORIES MAKER COVID: Recovered Comment:Added based on recent COVID infection. 11/06/2021 11/13/2021 03/06/2022 3:07 AM C DT documented as of this encounter Care Teams Outside Property Agent Relationship Specialty Start Date End Date Yoana Silverman MD [address] [place] [address] [phone] PCP - General Internal Medicine 02/10/19 10/30/20 Enrique Tesfaye Jr., MD [address] [place] [address] [id number] PCP - General 10/31/20 11/07/20 Yoana Silverman MD [address] [place] [address] [id number] PCP - General Internal Medicine 11/08/20 Parker Atkinson Jr., MD [address] [place] [address] Referring Physician Ophthalmology 11/04/19 09/22/24 Vero Diallo MD [address] [address] Referring Physician Pulmonary Disease 02/19/22 08/22/22 Jaron Abbasi MD [address] [place] [address] [phone] Consulting Physician Urology 08/23/22 Oscar Shaffer MD [address] [place] [address] Consulting Physician Sleep Medicine 08/23/22 Cristobal Gan MD [address] [facility] [place] [address] Consulting Physician Orthopedic Surgery 08/23/22 Franck Anne, JEAN MARIE [address] [facility] [place] [address] Consulting Physician Podiatry 08/23/22 Berry Jane MD [address] [place] [address] [address] [place] [address] Referring Physician Gastroenterology 08/23/22 Sterling Sierra MD [address] [place] [address] Referring Physician Orthopedic Surgery 02/21/23 documented as of this encounter
--- OUTSIDE RECORDS SUMMARY | 2025-09-15 16:58 | XMS_ITS | Encounter Summary ---
Author Organization [facility] Facility Care Team Providers Care Cms Expert Name Role Phone Yoana Silverman MD Primary Care Provider + [phone] China Hallman MD, Jericho A. Unavailable + [phone] Brien Hallman MD, Enrique Sin Primary Care Provide r Yoana Silverman MD Primary Care Provider + [phone] Vero Diallo MD Unavailable + [phone] Jaron Abbasi MD Unavailable +[phone] Oscar Shaffer MD Unavailable [phone] Cristobal Gan MD Unavailable + [phone] Franck Anne DPPhilly Unavailable [phone] Berry Jane MD Unavailable + Sterling Sierra MD Unavailable [phone] Encounter Details Date Type Department Care Team (Latest Contact Info) Description 03/08/2016 Orders Only [facility] CLINCONV ProviderLita MD [address] [place] [address] Social History Tobacco Use Types Packs/Day Years Used Date Smoking Tobacco: Never Assessed Sex and Gender Information Value Date Recorded Sex Assigned at Not on file Legal Sex Male 6:47 AM FEED HANDLER Gender Identity Male 08/02/2021 10:36 AM CDT [...] COVID: Suspected 10/27/2021 10/27/2021 10/27/2021 6:09 PM FEED HANDLER COVID19 10/27/2021 10/27/2021 11/06/2021 3:05 AM FEED HANDLER COVID: Recovered Comment:Added based on recent COVID infection. 11/06/2021 11/13/2021 03/06/2022 3:07 AM C DT documented as of this encounter Care Teams Cms Expert Relationship Specialty Start Date End Date Yoana Silverman MD [address] [place] [address] PCP - General Internal Medicine 02/10/19 10/30/20 Enrique Tesfaye Jr., MD [address] [place] [address] [phone] PCP - General 10/31/20 11/07/20 Yoana Silverman MD [address] [place] [address] [phone] PCP - General Internal Medicine 11/08/20 Parker Atkinson Jr., MD [address] [place] [address] Referring Physician Ophthalmology 11/04/19 09/22/24 Vero Diallo MD [address] [address] Referring Physician Pulmonary Disease 02/19/22 08/22/22 Jaron Abbasi MD [address] [address] Consulting Physician Urology 08/23/22 Oscar Shaffer MD [address] [place] [address] [id number] Consulting Physician Sleep Medicine 08/23/22 Cristobal Gan MD [address] [facility] [place] [address] Consulting Physician Orthopedic Surgery 08/23/22 Franck Anne, DPM [address] [place] [address] [place] [address] Consulting Physician Podiatry 08/23/22 Berry Jane MD [address] [facility] [address] [place] [address] Referring Physician Gastroenterology 08/23/22 Sterling Sierra MD [address] [facility] [address] [place] [address] Referring Physician Orthopedic Surgery 02/21/23 documented as of this encounter
--- OUTSIDE RECORDS SUMMARY | 2025-09-15 16:58 | XMS_ITS | Encounter Summary ---
Author Organization [facility] Healthcare Address [address] [place] [address] Care Team Providers Care Screw Cutter Name Role Phone Yoana Silverman MD Primary Care Provider [phone] Jaron Abbasi MD Unavailable +[phone] Oscar Shaffer MD Unavailable [phone] Franck Anne DPM Unavailable [phone] Berry Jane MD Unavailable + Sterling Sierra MD Unavailable [phone] Encounter Details Date Type Department Care Team (Late st Contact Info) Description 08/04/2025 Orders Only [facility] Health Information Management [address] [place] [phone] Scanning, Provider Social History Tobacco Use Types [...] on file Legal 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 Gender Identity Male 08/02/2021 10:36 AM CDT Sexual Orientation Straight 08/02/2021 10 :36 AM CDT 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 Not on file Not on file documented as of this encounter Plan of Treatment Not on file documented as of this encounter Procedures Procedure Name Priority Date/Time Associated Diagnosis Comments SCAN - RADIOLOGY/IMAGING 08/04/2025 documented in this encounter Results * SCAN - RADIOLOGY/IMAGING (08/04/2025) Anatomical Region Laterality Modality Other us Provider Scanning Final Result documented in this encounter Visit Diagnoses Not on filedocumented in this encounter Care Teams Screw Cutter Relationship Specialty Start Date End Date Yoana Silverman MD [address] [place], [place] [phone] PCP - General Internal Medicine 11/08/20 Jaron Abbasi MD [address] [place] [address] Consulting Physician Urology 08/23/22 Oscar Shaffer MD [address] [place], [place] [address] Consulting Physician Sleep Medicine 08/23/22 Fracnk Anne DPM [address] [place] [address] [place] [address] Consulting Physician Podiatry 08/23/22 Berry Jane MD [address] [place] [address] [facility] [place] [phone] Referring Physician Gastroenterology 08/23/22 Sterling Sierra MD [address] [place] [address] Referring Physician Orthopedic Surgery 02/21/23 documented as of this encounter
--- OUTSIDE RECORDS SUMMARY | 2025-09-15 16:58 | XMS_ITS | Encounter Summary ---
Author Organization [facility] Facility Care Team Providers Care Public Health Sanitarian Technician Name Role Phone Yoana Silverman MD Primary Care Provider + [phone] China Hallman MD, Wilmer A. Unavailable + [phone] Brein Hallman MD, Enrique Sin Primary Care Provide r Yoana Silverman MD Primary Care Provider + [phone] Vero Diallo MD Unavailable + [phone] Jaron Abbasi MD Unavailable [phone] Oscar Shaffer MD Unavailable [phone] Cristobal Gan MD Unavailable + [phone] Franck Anne DPPhilly Unavailable +[phone] Berry Jane MD Unavailable + Sterling Sierra MD Unavailable [phone] Encounter Details Date Type Department Care Team (Latest Contact Info) Description 04/22/2017 Orders Only [facility] CLINCON[facility] ProviderLita MD [address] [place] [address] Social History Tobacco Use Types Packs/Day Years Used Date Smoking Tobacco: Never Assessed Sex and Gender Information Value Date Recorded Sex Assigned at Not on file Legal Sex Male 6:47 AM NUTRIENT MANAGEMENT SPECIALIST Gender Identity Male 08/02/2021 10:36 AM CDT Sexual Orientation Straight 08/02/2021 10 :36 AM CDT documented as of this encounter Functional Status documented as of this encounter Plan of [...] COVID: Suspected 10/27/2021 10/27/2021 10/27/2021 6:09 PM NUTRIENT MANAGEMENT SPECIALIST COVID19 10/27/2021 10/27/2021 11/06/2021 3:05 AM NUTRIENT MANAGEMENT SPECIALIST COVID: Recovered Comment:Added based on recent COVID infection. 11/06/2021 11/13/2021 03/06/2022 3:07 AM C DT documented as of this encounter Care Teams Public Health Sanitarian Technician Relationship Specialty Start Date End Date Yoana Silverman MD [address] [place] [address] [phone] PCP - General Internal Medicine 02/10/19 10/30/20 Enrique Tesfaye Jr., MD [address] [place] [address] PCP - General 10/31/20 11/07/20 Yoana Silverman MD [address] [place] [address] PCP - General Internal Medicine 11/08/20 Parker Atkinson Jr., MD [address] [place] [address] Referring Physician Ophthalmology 11/04/19 09/22/24 Vero Diallo MD [address] [address] Referring Physician Pulmonary Disease 02/19/22 08/22/22 Jaron Abbasi MD [address] [phone] Consulting Physician Urology 08/23/22 Oscar Shaffer MD [address] [place] [address] Consulting Physician Sleep Medicine 08/23/22 Cristobal Gan MD [address] [facility] [place] [address] Consulting Physician Orthopedic Surgery 08/23/22 Franck Anne, JEAN MARIE [address] [facility] [place] [address] Consulting Physician Podiatry 08/23/22 Berry Jane MD [address] [address] [place] [address] Referring Physician Gastroenterology 08/23/22 Sterling Sierra MD [address] [place] [address] Referring Physician Orthopedic Surgery 02/21/23 documented as of this encounter
[2025-09-15 17:06] LABS: CRP < 0.5 mg/dL (<1.0)
== END 2025-09-15 15:51 | disposition home or self-care (01) ==
LOC: ANHLAB 15:52
PROVIDERS: PCP Internal Medicine; Visit Provider Orthopaedic Surgery
DX: T84.84XA Pain due to internal orthopedic prosthetic devices, implants and grafts, initial encounter (principal); Z96.611 Presence of right artificial shoulder joint
CPT/HCPCS: 36415; 85652; 86140

== ENCOUNTER 2025-09-18 08:48 | Outpatient (CLI) | payer MEDICARE, OTHER, SELFPAY ==
--- NOTE | ~2025-09-18 | XR_ITS ---
XR lumbar spine 6V w bending Indication: M54.9 - Dorsalgia, unspecified Comparison: None Findings: Dextroconvex scoliosis. Moderate loss of vertebral height throughout. No acute fracture or subluxation. There is no subluxation with flexion and extension. Severe loss of disc height throughout. Soft tissues unremarkable Impression: No acute abnormality. Reviewed, dictated and finalized at location P. ET SURVEY REPRESENTATIVE Impression: No acute abnormality.
--- NOTE | ~2025-09-18 | MR_ITS ---
EXAMINATION: MR lumbar spine wo con DATE: 09/18/2025 09:49 INDICATION: Dorsalgia, unspecified. TECHNIQUE: Magnetic resonance imaging (MRI) of the lumbar spine was performed without intravenous contrast. COMPARISON: Lumbar spine radiographs 09/18/2025 FINDINGS: There is 10 degrees dextroscoliosis of lumbar spine. There is mild chronic anterior wedging of T12 vertebral body. There is 3 mm retrolisthesis of L1 on L2, L2 on L3, and L3 on L4. There is severely decreased disc height from L1-L2 through L5-S1. The distal spinal cord signal intensity is normal. The conus medullaris is at T12-L1. The following disc levels are specifically discussed: L1-L2: The disc is bulging and has an annular fissure. There is severe bilateral facet joint osteoarthritis. There is moderate bilateral neural foraminal stenosis. There is mild central canal stenosis. L2-L3: The disc is bulging and has an annular fissure. There is severe bilateral facet joint osteoarthritis. There is moderate bilateral neural foraminal stenosis. There is moderate central canal stenosis. L3-L4: The disc is bulging and has an annular fissure. There is severe bilateral facet joint osteoarthritis. There is moderate bilateral neural foraminal stenosis. There is mild central canal stenosis. L4-L5: The disc is bulging. There is severe bilateral facet joint osteoarthritis. There is moderate bilateral neural foraminal stenosis. There is mild central canal stenosis. L5-S1: The disc is bulging and has an annular fissure. There is severe bilateral facet joint osteoarthritis. There is mild bilateral neural foraminal stenosis. There is mild central canal stenosis. IMPRESSION: 1. Severe lumbar spondylosis. 2. Lumbar dextroscoliosis. Reviewed, dictated and finalized at location E. CTOR MEETINGS
--- OUTSIDE RECORDS SUMMARY | 2025-09-18 08:54 | XMS_ITS | Encounter Summary ---
Author Organization [facility] Healthcare Address [address] [place] [address] Care Team Providers Care Lost And Found Clerk Name Role Phone Yoana Silverman MD Primary Care Provider [phone] Jaron Abbasi MD Unavailable +[phone] Oscar Shaffer MD Unavailable [phone] Franck Anne DPM Unavailable +[phone] Berry Jane MD Unavailable + Sterling Sierra MD Unavailable [phone] Encounter Details Date Type Department Care Team (Late st Contact Info) Description 08/04/[address] 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 Gender Identity Male 08/02/2021 10:36 AM CDT [...] on filedocumented in this encounter Care Teams Lost And Found Clerk Relationship Specialty Start Date End Date Yoana Silverman MD [address] [place], [place] [address] PCP - General Internal Medicine 11/08/20 Jaron Abbasi MD [address] [place] [address] Consulting Physician Urology 08/23/22 Oscar Shaffer MD [address] [place], [place] [address] Consulting Physician Sleep Medicine 08/23/22 Franck Anne DPM [address] [place] [address] [place] [address] Consulting Physician Podiatry 08/23/22 Berry Jane MD [address] [address] [facility] [place] [id number] Referring Physician Gastroenterology 08/23/22 Sterling Sierra MD [address] [place] [address] Referring Physician Orthopedic Surgery 02/21/23 documented as of this encounter
--- OUTSIDE RECORDS SUMMARY | 2025-09-18 08:54 | XMS_ITS | Encounter Summary ---
Author Organization [facility] Facility Care Team Providers Care Travel Freight And Passenger Agent Name Role Phone Yoana Silverman MD Primary Care Provider + [phone] China Hallman MD, [place] A. Unavailable + [phone] Brien Hallman MD, Enrique Sin Primary Care Provide r Yoana Silverman MD Primary Care Provider + [phone] Vero Diallo MD Unavailable + [phone] Jaron Abbasi MD Unavailable +[phone] Oscar Shaffer MD Unavailable [phone] Cristobal Gan MD Unavailable + [phone] Franck Anne DPPhilly Unavailable +[phone] Berry Jane MD Unavailable + Sterling Sierra MD Unavailable [phone] Encounter Details Date Type Department Care Team (Latest Contact Info) Description 03/08/2016 Orders Only [facility] CLINCONV ProviderLita MD [address] [place] [address] Social History Tobacco Use Types Packs/Day Years Used Date Smoking Tobacco: Never Assessed Sex and Gender Information Value Date Recorded Sex Assigned at Not on file Legal Sex Male 6: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 11/06/2021 11/13/2021 03/06/2022 3:07 AM C DT documented as of this encounter Care Teams Travel Freight And Passenger Agent Relationship Specialty Start Date End Date Yoana Silverman MD [address] [place] [phone] PCP - General Internal Medicine 02/10/19 10/30/20 Enrique Tesfaye Jr., MD [address] [place] [address] [phone] PCP - General 10/31/20 11/07/20 Yoana Silverman MD [address] [place] [address] [phone] PCP - General Internal Medicine 11/08/20 Parker Atkinson Jr., MD [address] [place] [address] Referring Physician Ophthalmology 11/04/19 09/22/24 Vero Diallo MD [address] [address] Referring Physician Pulmonary Disease 02/19/22 08/22/22 Jaron Abbasi MD [address] [address] Consulting Physician Urology 08/23/22 Oscar Shaffer MD [address] [place] [address] [id number] Consulting Physician Sleep Medicine 08/23/22 Cristobal Gan MD [address] [facility] [place] [address] Consulting Physician Orthopedic Surgery 08/23/22 Franck Anne[place]PM [address] [place] [address] [place] [address] Consulting Physician Podiatry 08/23/22 Berry Jane MD [address] [facility] [address] [place] [address] Referring Physician Gastroenterology 08/23/22 Sterling Sierra MD [address] [facility] [address] [place] [address] Referring Physician Orthopedic Surgery 02/21/23 documented as of this encounter
--- OUTSIDE RECORDS SUMMARY | 2025-09-18 08:54 | XMS_ITS | Encounter Summary ---
Author Organization [facility] Facility Care Team Providers Care Electromechanical Technician Name Role Phone Yoana Silverman MD Primary Care Provider + [phone] China Hallman MD, [place] A. Unavailable + [phone] Brien Hallman MD, Enrique Sin Primary Care Provide r Yoana Silverman MD Primary Care Provider + [phone] Vero Diallo MD Unavailable + [phone] Jaron Abbasi MD Unavailable [phone] Oscar Shaffer MD Unavailable [phone] Cristobal Gan MD Unavailable + [phone] Franck Anne DPPhilly Unavailable +[phone] Berry Jane MD Unavailable + Sterling Seirra MD Unavailable [phone] Encounter Details Date Type Department Care Team (Latest Contact Info) Description 08/24/2016 Orders Only [facility] CLINCONV ProviderLita MD [address] [place] [id number] Social History Tobacco Use Types Packs/Day Years Used Date Smoking Tobacco: Never Assessed Sex and Gender Information Value Date Recorded Sex Assigned at Not on file Legal Sex Male 6:47 AM CONSTRUCTION HELPER Gender Identity Male 08/02/2021 10:36 AM CDT Sexual Orientation Straight 08/02/2021 10 :36 AM CDT documented as of this encounter Plan of Treatment Not on file documented as of this encounter Procedures Procedure Name Priority Date/Time Associated Diagnosis Comments SCAN - LABS 09/05/2016 12:00 AM CONSTRUCTION HELPER documented in this encounter Results * SCAN - LABS (09/05/2016 12:00 AM CONSTRUCTION HELPER) Narrative 09/05/2016 12:00 AM CONSTRUCTION HELPER Ordered by an unspecified provider. us Historical [...] COVID: Suspected 10/27/2021 10/27/2021 10/27/2021 6:09 PM CONSTRUCTION HELPER COVID19 10/27/2021 10/27/2021 11/06/2021 3:05 AM CONSTRUCTION HELPER COVID: Recovered Comment:Added based on recent COVID infection. 11/06/2021 11/13/2021 03/06/2022 3:07 AM C DT documented as of this encounter Care Teams Electromechanical Technician Relationship Specialty Start Date End Date Yoana Silverman MD [address] [place] [address] [phone] PCP - General Internal Medicine 02/10/19 10/30/20 Enrique Tesfaye Jr., MD [address] [place] [address] [id number] PCP - General 10/31/20 11/07/20 Yoana Silverman MD [address] [place] [address] [id number] PCP - General Internal Medicine 11/08/20 Parker Atkinson Jr., MD [address] [place] [address] Referring Physician Ophthalmology 11/04/19 09/22/24 Vero Diallo MD [address] [address] Referring Physician Pulmonary Disease 02/19/22 08/22/22 Jaron Abbasi MD [address] [place] [address] [phone] Consulting Physician Urology 08/23/22 Oscar Shaffer MD [address] [place] [address] Consulting Physician Sleep Medicine 08/23/22 Cristobal Gan MD [address] [facility] [facility] [place] [address] Consulting Physician Orthopedic Surgery 08/23/22 Franck Anne, JEAN MARIE [address] [place] [address] Consulting Physician Podiatry 08/23/22 Berry Jane MD [address] [place] [address] [address] [place] [address] Referring Physician Gastroenterology 08/23/22 Sterling Sierra MD [address] [place] [address] Referring Physician Orthopedic Surgery 02/21/23 documented as of this encounter
--- OUTSIDE RECORDS SUMMARY | 2025-09-18 08:54 | XMS_ITS | Encounter Summary ---
Author Organization [facility] Facility Care Team Providers Care Meal Cooker Name Role Phone Yoana Silverman MD Primary Care Provider + [phone] China Hallman MD, [place] A. Unavailable + [phone] Brien Hallman MD, Enrique Sin Primary Care Provide r Yoana Silverman MD Primary Care Provider + [phone] Vero Diallo MD Unavailable + [phone] Jaron Abbasi MD Unavailable [phone] Oscar Shaffer MD Unavailable [phone] Cristobal Gan MD Unavailable + [phone] Franck Anne DPPhilly Unavailable [phone] Berry Jane MD Unavailable + Sterling Sierra MD Unavailable [phone] Encounter Details Date Type Department Care Team (Latest Contact Info) Description 04/22/2017 Orders Only [facility] CLINCONV ProviderLita MD [address] [place] [address] Social History Tobacco Use Types Packs/Day Years Used Date Smoking Tobacco: Never Assessed Sex and Gender Information Value Date Recorded Sex Assigned at Not on file Legal Sex Male 6:47 AM CAFE AIDE Gender Identity Male 08/02/2021 10:36 AM CDT [...] COVID: Suspected 10/27/2021 10/27/2021 10/27/2021 6:09 PM CAFE AIDE COVID19 10/27/2021 10/27/2021 11/06/2021 3:05 AM CAFE AIDE COVID: Recovered Comment:Added based on recent COVID infection. 11/06/2021 11/13/2021 03/06/2022 3:07 AM C DT documented as of this encounter Care Teams Meal Cooker Relationship Specialty Start Date End Date Yoana Silverman MD [address] [place] [address] [phone] PCP - General Internal Medicine 02/10/19 10/30/20 Enrique Tesfaye Jr., MD [address] [place] [address] [phone] PCP - General 10/31/20 11/07/20 Yoana Silverman MD [address] [place] [address] [id number] PCP - General Internal Medicine 11/08/20 Parker Atkinson Jr., MD [address] [place] [address] Referring Physician Ophthalmology 11/04/19 09/22/24 Vero Diallo MD [address] [address] Referring Physician Pulmonary Disease 02/19/22 08/22/22 Jaron Abbasi MD [address] [place] [address] [id number] Consulting Physician Urology 08/23/22 Oscar Shaffer MD [address] [place] [address] Consulting Physician Sleep Medicine 08/23/22 Cristobal Gan MD [address] [facility] [place] [address] Consulting Physician Orthopedic Surgery 08/23/22 Franck Anne, JEAN MARIE [address] [facility] [place] [address] Consulting Physician Podiatry 08/23/22 Berry Jane MD [address] [place] [address] Referring Physician Gastroenterology 08/23/22 Sterling Sierra MD [address] [place] [address] Referring Physician Orthopedic Surgery 02/21/23 documented as of this encounter
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
== END 2025-09-18 08:49 | disposition home or self-care (01) ==
PROVIDERS: PCP Internal Medicine; Visit Provider Nurse Practitioner Adult Health
DX: M47.816 Spondylosis without myelopathy or radiculopathy, lumbar region (principal); M48.061 Spinal stenosis, lumbar region without neurogenic claudication; M54.51 Vertebrogenic low back pain; M54.9 Dorsalgia, unspecified
CPT/HCPCS: 72114; 72148